=== PATIENT | male | born 1940 | race Caucasian/White ===

== ENCOUNTER → 2016-09-18 | Outpatient (CLI) | payer OTHER | LOC: MMPC 09:00 | PROVIDERS: ATTEND Family Medicine | DX: Z79.01 Long term (current) use of anticoagulants (principal); Z51.81 Encounter for therapeutic drug level monitoring; I48.91 Unspecified atrial fibrillation | CPT/HCPCS: 85610 ==

== ENCOUNTER → 2016-11-13 | Outpatient (CLI) | payer OTHER | LOC: MMPC 09:00 | PROVIDERS: ATTEND Family Medicine | DX: Z79.01 Long term (current) use of anticoagulants (principal); Z51.81 Encounter for therapeutic drug level monitoring; I48.91 Unspecified atrial fibrillation | CPT/HCPCS: 85610 ==

== ENCOUNTER 2017-02-06 09:30 | Inpatient (IN) | payer OTHER ==
[2017-02-06] MEDS ORDERED: NORMAL SALINE 10 ML SYRINGE FLUSH IVP PRN ×4 (09:40→12:17)
--- NOTE | 2017-02-06 09:43 | EKG ---
[address] [address] Measurements Intervals [place] Rate: 54 P: IA: 0 QRS: 97 QRSD: 107 T: -10 QT: 447 QTc: 432 Interpretive Statements ATRIAL FIBRILLATION WITH SLOW VENTRICULAR RESPONSE BORDERLINE RIGHT AXIS DEVIATION [QRS AXIS > 90] NONSPECIFIC ST & T-WAVE ABNORMALITY Compared to ECG 07/24/2014 17:04:48 No significant changes Electronically Signed On 02-06-17 10:16:08 MDT by Terry Carroll [email or web address]
--- NOTE | 2017-02-06 10:11 | PDOC ---
General Adult HPI - General Chief Complaint: Chest Pain Stated Complaint: SHORTNESS OF BREATH, CHEST HEAVINESS Date Seen by Provider: 02/06/17 Time Seen by Provider: 09:30 Source: POSITIVE: Patient Exam Limitations: POSITIVE: No limitations Nurse's Notes Reviewed & Considered: Yes - History of Present Illness Initial Comment: The patient is a 76-year-old male who is sent to the emergency department from the clinic with complaints of shortness of breath and chest heaviness. He apparently has had some increased cough over the past couple of days. This morning when he woke up he felt somewhat bloated and has some heaviness across his chest. He feels like he cannot take a deep breath. He also feels more short of breath especially with activity. He denies any fevers or chills. He has had some increased edema in his legs over the past several weeks. He does have a history of atrial fibrillation and takes Coumadin. His last INR was checked several weeks ago at the cardiology clinic in [place] and he thought this was around 3. He also has a history of diabetes and hypertension. He has not yet taken his blood pressure medications this morning. He normally does not wear oxygen at home however wears BiPAP at night. He does not use any inhalers or breathing treatments at home. He has a distant history of smoking and quit sometime in the 80s. He has a strong family history of coronary artery disease stating that his mom, dad and brother all had heart attacks. Have you received a tetanus shot in the past 10 years?: Unknown - Patient Home Medications Home Medications: Home Medications Lo-Dose Aspirin Ec 1 tab ORAL QD tab 02/28/11 Glucosamine HCl/Chondro Andrade A [Glucosamine Chondroitin Cap] 1 cap PO .DAILY 08/07 Multivitamins W-Minerals/Lut [Centrum Silver Tablet] 1 tab PO DAILY #0 tab 09/20 Cinnamon Bark/Chromium Picolin [Cinnamon Plus Chromium Capsule] 500 mg PO DAILY 12/21/13 Bipap 1 unit INH BEDTIME #1 unit 04/03/16 Amlodipine Besylate 1 tab PO QD #90 tab 12/01/16 Atorvastatin Calcium 20 mg PO DAILY #90 tab 12/01/16 Benazepril HCl 1 tab PO DAILY #90 tab 12/01/16 Carvedilol 1 tab PO BID #180 tab 12/01/16 Furosemide 1 tab PO BID #180 tab 12/01/16 Insulin Glargine SoloStar Inj [Lantus Solostar Inj] 45 unit SUBCUT QD #3 box Levothyroxine Sodium [Synthroid] 150 mcg PO DAILY #90 tab 12/01/16 Metformin HCl 1 tab PO BID #180 tab 12/01/16 Potassium Chloride 1 tab ORAL QD #90 tab 12/01/16 Warfarin Sodium 1 tab PO ASDIR #120 tab 12/01/16 Pen Needle, Diabetic [Unifine Pentips Plus] 1 each QID #120 unit 12/25/16 Insulin Aspart [Novolog Flexpen] 3 - 23 unit SUBCUT AC #3 unit 01/03/17 Sildenafil Citrate [Viagra] 100 mg PO PRN PRN 02/06/17 - Patient Allergies Allergies/Adverse Reactions: Allergies Allergy/AdvReac Type Severity Reaction Status Date / Time rofecoxib [From Vioxx] Allergy Severe swelling Verified 02/06/17 09:58 tongue,eyelids iodine topically Allergy Severe rash Uncoded 02/06/17 09:58 Past Medical History - heen HEENT History: Denies History Cardiovascular History: Hypertension, Arrhythmia, Hyperlipidemia, Other (please comment) Additional Cardiovasular History: A-FIB Respiratory History: Sleep Apnea, Home CPAP Use Gastrointestinal History: Denies History Genitourinary History: Denies History Endocrine History: Type 2 Diabetes (oral), Type 2 Diabetes (insulin), Hyperthyroidism Musculoskeletal History: Other (please comment) Prosthesis or Implant: Yes (hips) Additional Musculoskeletal History: Bilateral total hip replacement Neurological History: Denies History Blood Disorders: Denies History Psychiatric History: Denies History History of Sexually Transmitted Diseases: No Cancer History: Denies History History of MDRO: No History of Other Communicable Diseases: No Alcohol Use: Occasionally Substance Use Type: None Previous Surgical History: Yes Type / Date of Surgery: APPENDECTOMY,B CARPAL TUNNEL, B THR, CERVICAL DISC REPLACEMENT/FUSION Anesthesia Reactions: No Malignant Hyperthermia: No Significant Family History: No pertinent family hx Past Medical History Reviewed: Reviewed - No Changes ROS - Limitations ROS Limitations: No Limitations Constitution: DENIES: Chills, Fever Cardiovascular: REPORTS: Edema, Other (Heaviness in his chest and reports it's difficult to take deep breath). DENIES: Heart Racing, Heart Palpitations Respiratory: REPORTS: Cough Non Productive, Hurts To Breathe, Shortness Of Breath Neurological: REPORTS: Denies Neuro Symptoms Gastrointestinal: REPORTS: Nausea, Other (States that he feels bloated). DENIES : Vomitting, Diarrhea (Reports normal stool yesterday) Musculoskeletal: REPORTS: Lower Extremity Swelling (He states that normally he only has swelling in his right leg, the past couple of weeks he's had swelling in both legs) Genitourinary: REPORTS: Denies Symptoms Eyes: REPORTS: Denies Symptoms ENT: REPORTS: Denies Symptoms Skin: DENIES: Rash General Adult Exam - General Appearance General Appearance: POSITIVE: Alert, Cooperative, No Acute Distress - HEENT HEENT: POSITIVE: Head Inspection Nml, Eyes Inspection Nml, Ears Inspection Nml, Nose Inspection Nml - Neck Neck: POSITIVE: Normal Inspection. NEGATIVE: Lymphadenopathy - Respiratory Respiratory: POSITIVE: No Respiratory Distress, Breath Sounds Normal (Decreased breath sounds bilaterally) - Cardiovascular Cardiovascular: POSITIVE: No Murmur, Irregularly Irreg. Rhythm - Abdomen Abdomen: Soft: (All Quadrants), Normal Bowel Sounds: (All Quadrants), Denies Tenderness: (All Quadrants) Additional Abdominal Details: His abdomen is mildly distended and nontender - Extremities Extremity: Normal ROM: (All Extremities) Additional Extremities Details: Edema in the lower extremities bilaterally - Neurological / Psychological Neurological: POSITIVE: Oriented X3, Motor Normal, Sensation Normal, Other (No focal neurologic deficit) General Adult Progress - Results Reviewed by me Xrays/CTs/US Reviewed by me: Yes Discussed with Radiologist: Yes Radiology Findings: Chest x-ray shows prominent cardiac silhouette along with interstitial edema concerning for congestive heart failure per radiologist. Lab Results Reviewed: Yes Lab Results:: Laboratory Results 02/06/17 Range/Units 10:17 WBC 6.85 (4.8-10.8) 10^3/uL RBC 4.44 L (4.70-6.10) 10^6/uL Hgb 13.6 L (14.0-18.0) g/dL Hct 40.9 L (42.0-52.0) % MCV 92.1 H (80-90) FL MCH 30.6 (27-31) PG MCHC 33.3 (33-37) g/dL RDW Std Deviation 50.3 H (39-50) fL RDW Coeff of Ashley 15.5 H (11.5-14.5) % Plt Count 128 L (140-350) 10*3/uL MPV 11.1 (7.4-12.2) FL Immature Gran % (Auto) 0.1 (0-5) % Neut % (Auto) 62.6 (50-80) % Lymph % (Auto) 21.3 (10-50) % Clare % (Auto) 8.9 (5-15) % Eos % (Auto) 5.3 (0-8) % Baso % (Auto) 1.8 H (0-1) % Immature Gran # (Auto) 0.01 10*3/UL Neut # (Auto) 4.29 10*3/UL Lymph # (Auto) 1.46 10*3/uL Clare # (Auto) 0.61 (0.3-0.8) 10*3/UL Eos # (Auto) 0.36 10*3/UL Baso # (Auto) 0.12 10*3/UL WBC Morphology Comment Normal morphology (NORM) Plt Morphology Comment Normal morphology (NORM) RBC Morph Comment Normal morphology (NORM) PT 26.2 H (9.7-11.4) secs INR 2.50 (0.00-5.90) N/A D-Dimer < 0.19 (0.00-0.59) mg/L Sodium 141 (135-145) meq/L Potassium 3.5 L (3.8-5.2) meq/L Chloride 107 (98-112) meq/L Carbon Dioxide 22 L (23-33) meq/L Anion Gap 12 (5-20) BUN 15 (7-22) mg/dL Creatinine 0.8 (0.70-1.50) mg/dL Estimated GFR (>60 ml/min/1.73m(2)) BUN/Creatinine Ratio 18.75 (6-20) Glucose 199 H (78-110) mg/dL Calculated Osmolality 298.0 H (267-292) mOsm/kg Calcium 8.9 (8.7-10.7) mg/dL Magnesium 1.7 (1.6-2.4) mg/dL Total Bilirubin 1.5 H (0.3-1.2) mg/dL AST 27 (21-57) IU/L ALT 30 (21-72) IU/L Alkaline Phosphatase 76 (38-126) IU/L CK-MB (CK-2) 2.34 (0.00-5.00) NG/ML Troponin I < 0.012 (< 0.040) ng/mL NT-Pro-B Natriuret Pep 545 H (0-450) PG/ML Total Protein 7.1 (6.1-8.0) g/dL Albumin 4.1 (3.5-4.8) g/dL Globulin 3.0 (2.50-4.10) g/dL Albumin/Globulin Ratio 1.30 (1.3-2.0) mg/g Amylase 64 (30-110) U/L Lipase 154 (23-300) IU/L EKG Interpreted/Reviewed By Me:: Yes EKG Interpretation:: POSITIVE: Other (His EKG shows atrial fibrillation with a normal rate, no significant ST segment or T-wave changes, no acute changes when compared to a prior EKG from 2013.) - Patient's Progress MDM / ED Course: The patient was slightly hypoxic on arrival with oxygen saturations 87-89% on room air. He was placed on oxygen per nasal cannula and his oxygen saturations came up into the mid-90s. His initial EKG shows atrial fibrillation which is chronic with a normal rate and no acute ST segment or T-wave changes. His chest x-ray shows borderline cardiomegaly with evidence of congestive heart failure per radiologist. His BNP is also elevated. Troponin is normal, d- dimer is normal and his INR is 2.5. Patient's clinical presentation is consistent with CHF with associated hypoxia. He does have elevated blood pressure is well with an initial blood pressure of 200 systolic. Findings were discussed with the patient and his family. Decision was made to admit the patient for further treatment and evaluation. I did discuss the patient with Dr. Ramachandran and he recommended administration of clonidine 0.1 mg by mouth as well as lisinopril 40 mg by mouth. The patient had no IV access in the emergency department after multiple attempts. I did discuss the patient with the radiologist who has set up a guided PICC line. The patient is in agreement with current plan. - Consult Counseled: POSITIVE: Patient, Family, RE: Lab Results, RE: Radiology Results, RE : DX Patient Care Time - Estimated PCT Patient Care Time (In Minutes): 45 Vital Signs - Recent Vital Signs Vital Signs: Vital Signs (Last 8 hours) Temp Pulse Pulse Pulse Resp BP BP 02/06/17 16:53 97.4 F 61 19 169/73 02/06/17 15:00 59 L 02/06/17 12:24 97.5 F 54 L 22 148/78 02/06/17 12:20 54 L 02/06/17 11:59 97.2 F 52 L 18 155/68 Pulse Ox 02/06/17 16:53 90 02/06/17 15:00 02/06/17 12:24 95 02/06/17 12:20 02/06/17 11:59 96 - VS Reviewed Vital Signs Reviewed: Yes Discharge Clinical Impression: Hypertension, Atrial fibrillation, Congestive heart failure due to high blood pressure Discharge Disposition: Admit to Inpatient Condition: Stable Date Decision to Admit to Inpatient: 02/06/17 Time Decision to Admit to Inpatient: 11:15
[2017-02-06 10:20] LABS: BASOPHILS # (AUTO) 0.12 10*3/UL; BASOPHILS % (AUTO) 1.8 % (0-1); EOSINOPHILS # (AUTO) 0.36 10*3/UL; EOSINOPHILS % (AUTO) 5.3 % (0-8); HEMATOCRIT 40.9 % (42.0-52.0); HEMOGLOBIN 13.6 g/dL (14.0-18.0); LYMPHOCYTES # (AUTO) 1.46 10*3/uL; MEAN CORPUSCULAR HEMOGLOBIN 30.6 PG (27-31); MEAN CORPUSCULAR HGB CONC 33.3 g/dL (33-37); MEAN CORPUSCULAR VOLUME 92.1 FL (80-90); MEAN PLATELET VOLUME 11.1 FL (7.4-12.2); MONOCYTES # (AUTO) 0.61 10*3/UL (0.3-0.8); MONOCYTES % (AUTO) 8.9 % (5-15); NEUTROPHILS # (AUTO) 4.29 10*3/UL; NEUTROPHILS % (AUTO) 62.6 % (50-80); RED BLOOD COUNT 4.44 10^6/uL (4.70-6.10)
[2017-02-06 10:21] LABS: PLATELET MORPHOLOGY COMMENT NORMAL MORPHOLOGY (NORM); RBC MORPHOLOGY COMMENT NORMAL MORPHOLOGY (NORM); WBC MORPHOLOGY COMMENT NORMAL MORPHOLOGY (NORM)
[2017-02-06 10:27] LABS: BUN/CREATININE RATIO 18.75 (6-20); CALCIUM 8.9 mg/dL (8.7-10.7); MAGNESIUM 1.7 mg/dL (1.6-2.4); SERUM ALBUMIN 4.1 g/dL (3.5-4.8)
[2017-02-06 10:50] LABS: CREATINE KINASE MB 2.34 NG/ML (0.00-5.00)
[2017-02-06 10:52] LABS: TROPONIN I < 0.012 ng/mL (< 0.040)
--- NOTE | 2017-02-06 11:01 | DI ---
XR CXR 1VW,02/06/2017 9:40 AM: Clinical History: Chest pain Previous Exam: November 01, 2015 Findings: A single frontal AP view of the chest is obtained, and demonstrates increased interstitial markings. There is prominence of the cardiomediastinal silhouette, but this is hard to assess on an AP view. The bony thorax is unremarkable. There is no blunting of the costophrenic angles. Impression: Increased interstitial markings and prominent cardiomediastinal silhouette worrisome for congestive h eart failure. Correlate clinically.
[2017-02-06] MEDS ORDERED: CloNIDine Tab 0.1 MG TABLET PO ONE (11:18)
[2017-02-06] MEDS ORDERED: LISINOPRIL 10 MG TABLET PO ONE (11:18)
[2017-02-06] MEDS ORDERED: LIDOCAINE W/ SODIUM BICARB 0.5 ML SYR SUBD PRN ×2 (11:21→12:17)
--- NOTE | 2017-02-06 11:29 | PDOC ---
History and Physical - History of Present Illness History of Present Illness: This very nice 76-year-old gentleman with past medical history significant for chronic atrial fibrillation, hypertension, and diabetes. Comes into the ER from the outpatient clinic complaining of shortness of breath and chest heaviness. Also feels more short of breath with activity lately and also the edema in his lower extremities are also noted and worsened also was found to have a blood blood pressure 200/100 also has a history of sleep apnea and wears BiPAP at night strong family history of coronary artery disease and smoking in the past. Discussed with ER physician he will be given 0.1 on clonidine and lisinopril 401 also will get an a PICC line since he is a hard stick by the radiology department. Both his lower extremities are pretty swollen especially his right leg no chest pain at present time family members in the room Past Medical History Tobacco Use: Former Smoker Substance Use Type: None Medication / Allergies Home Medications: Home Medications Medication Instructions Recorded Confirmed Type Lo-Dose Aspirin Ec 1 tab ORAL QD tab 02/28/11 02/06/17 History Glucosamine HCl/Chondro Andrade A 1 cap PO .DAILY 08/07/11 02/06/17 History [Glucosamine Chondroitin Cap] Multivitamins W-Minerals/Lut 1 tab PO DAILY #0 tab 09/20/12 02/06/17 Clinic [Centrum Silver Tablet] Cinnamon Bark/Chromium Picolin 500 mg PO DAILY 12/21/13 02/06/17 History [Cinnamon Plus Chromium Capsule] Bipap 1 unit INH BEDTIME #1 unit 04/03/16 02/06/17 History Amlodipine Besylate 1 tab PO QD #90 tab 12/01/16 02/06/17 Clinic Atorvastatin Calcium 20 mg PO DAILY #90 tab 12/01/16 02/06/17 Clinic Benazepril HCl 1 tab PO DAILY #90 tab 12/01/16 02/06/17 Clinic Carvedilol 1 tab PO BID #180 tab 12/01/16 02/06/17 Clinic Furosemide 1 tab PO BID #180 tab 12/01/16 02/06/17 Clinic Insulin Glargine SoloStar Inj 45 unit SUBCUT QD #3 box 12/01/16 02/06/17 Clinic [Lantus Solostar Inj] Levothyroxine Sodium [Synthroid] 150 mcg PO DAILY #90 tab 12/01/16 02/06/17 Clinic Metformin HCl 1 tab PO BID #180 tab 12/01/16 02/06/17 Clinic Potassium Chloride 1 tab ORAL QD #90 tab 12/01/16 02/06/17 Clinic Warfarin Sodium 1 tab PO ASDIR #120 tab 12/01/16 02/06/17 Clinic Pen Needle, Diabetic [Unifine 1 each MC QID #120 unit 12/25/16 02/06/17 Clinic Pentips Plus] Insulin Aspart [Novolog Flexpen] 3 - 23 unit SUBCUT AC #3 unit 01/03/17 [facility] Sildenafil Citrate [Viagra] 100 mg PO PRN PRN 02/06/17 02/06/17 History Allergies/Adverse Reactions: Allergies Allergy/AdvReac Type Severity Reaction Status Date / Time rofecoxib [From Vioxx] Allergy Severe swelling Verified 02/06/17 09:58 tongue,eyelids iodine topically Allergy Severe rash Uncoded 02/06/17 09:58 Exam - Vitals Vital Signs: Vital Signs Temperature 96.3 F Temperature Source Temporal Artery Scan Pulse Rate [Telemetry] 54 Pulse Rate 54 Respiratory Rate 19 Blood Pressure [Right Arm] 201/97 Pulse Ox 87 Oxygen Delivery Method Room Air Height 5 ft 11 in Weight 122.47 kg - General General Appearance: POSITIVE: No Acute Distress, Cooperative - Head Head Exam: POSITIVE: Normal Inspection, Normocephalic, Atraumatic - Respiratory Respiratory Exam: POSITIVE: Clear to Auscultation - Bilaterally, Breathing Non Labored, Decreased Breath Sounds, Crackles - Cardiovascular Cardiovascular Exam: POSITIVE: Irregular Rhythm Additional Cardiovascular Details: Atrial fibrillation - GI/Abdominal GI/Abdominal Exam: POSITIVE: Normal Bowel Sounds, Non Distended, Soft - Extremities Extremities Exam: POSITIVE: +3 Edema - Neurological Neurological Exam: POSITIVE: Alert, Oriented x 3, CN II-XII Intact, No Facial Droop, Speech Intact / Clear - Psychiatric Psychiatric Exam: POSITIVE: Normal Affect, Normal Mood Results - Labs CBC and BMP: 02/06/17 10:17 02/06/17 10:17 Labs - Last 24 Hours: Laboratory Results 02/06/17 Range/Units 10:17 WBC 6.85 (4.8-10.8) 10^3/uL RBC 4.44 L (4.70-6.10) 10^6/uL Hgb 13.6 L (14.0-18.0) g/dL Hct 40.9 L (42.0-52.0) % MCV 92.1 H (80-90) FL MCH 30.6 (27-31) PG MCHC 33.3 (33-37) g/dL RDW Std Deviation 50.3 H (39-50) fL RDW Coeff of Ashley 15.5 H (11.5-14.5) % Plt Count 128 L (140-350) 10*3/uL MPV 11.1 (7.4-12.2) FL Immature Gran % (Auto) 0.1 (0-5) % Neut % (Auto) 62.6 (50-80) % Lymph % (Auto) 21.3 (10-50) % Cannon % (Auto) 8.9 (5-15) % Eos % (Auto) 5.3 (0-8) % Baso % (Auto) 1.8 H (0-1) % Immature Gran # (Auto) 0.01 10*3/UL Neut # (Auto) 4.29 10*3/UL Lymph # (Auto) 1.46 10*3/uL Cannon # (Auto) 0.61 (0.3-0.8) 10*3/UL Eos # (Auto) 0.36 10*3/UL Baso # (Auto) 0.12 10*3/UL WBC Morphology Comment Normal morphology (NORM) Plt Morphology Comment Normal morphology (NORM) RBC Morph Comment Normal morphology (NORM) PT 26.2 H (9.7-11.4) secs INR 2.50 (0.00-5.90) N/A D-Dimer < 0.19 (0.00-0.59) mg/L Sodium 141 (135-145) meq/L Potassium 3.5 L (3.8-5.2) meq/L Chloride 107 (98-112) meq/L Carbon Dioxide 22 L (23-33) meq/L Anion Gap 12 (5-20) BUN 15 (7-22) mg/dL Creatinine 0.8 (0.70-1.50) mg/dL Estimated GFR (>60 ml/min/1.73m(2)) BUN/Creatinine Ratio 18.75 (6-20) Glucose 199 H (78-110) mg/dL Calculated Osmolality 298.0 H (267-292) mOsm/kg Calcium 8.9 (8.7-10.7) mg/dL Magnesium 1.7 (1.6-2.4) mg/dL Total Bilirubin 1.5 H (0.3-1.2) mg/dL AST 27 (21-57) IU/L ALT 30 (21-72) IU/L Alkaline Phosphatase 76 (38-126) IU/L CK-MB (CK-2) 2.34 (0.00-5.00) NG/ML Troponin I < 0.012 (< 0.040) ng/mL NT-Pro-B Natriuret Pep 545 H (0-450) PG/ML Total Protein 7.1 (6.1-8.0) g/dL Albumin 4.1 (3.5-4.8) g/dL Globulin 3.0 (2.50-4.10) g/dL Albumin/Globulin Ratio 1.30 (1.3-2.0) mg/g Amylase 64 (30-110) U/L Lipase 154 (23-300) IU/L Assessment and Plan - Patient Problems (1) Congestive heart failure due to high blood pressure Current Visit: Yes Status: Acute Comment: Obtain a PICC line and start IV Lasix order 2-D echo most likely secondary to high blood pressure we'll also rule him out with serial troponins (2) Hypertensive urgency Current Visit: Yes Status: Acute Comment: 0.1 on clonidine and lisinopril 40 IV Lasix as well patient is already on R beta sanford and calcium channel sanford he has not taken his meds today yet (3) Diabetes 1.5, managed as type 2 Current Visit: No Status: Acute Comment: Into the same medication check hemoglobin A1c (4) Edema Current Visit: No Status: Acute Comment: IV Lasix and also I will order ultrasound of his lower extremities rule out DVT (5) Hypertension Current Visit: No Status: Acute Comment: See above (6) Sleep apnea Current Visit: No Status: Acute Comment: Continue CPAP (7) Atrial fibrillation Current Visit: No Status: Chronic Comment: Continue beta sanford and Coumadin
[2017-02-06] MEDS ORDERED: FUROSEMIDE 10 MG/1 ML - 2 ML VIAL IV SCH (11:30)
[2017-02-06] MEDS ORDERED: NORMAL SALINE 10 ML SYRINGE FLUSH IV PRN (11:35)
[2017-02-06] MEDS ORDERED: Lidocaine 1% 10 MG/ML - 20 ML VIAL SUBCUT PRN (11:35)
[2017-02-06] MEDS ORDERED: LIDOCAINE 2% 20 MG/ML - 20 ML VIAL SUBCUT PRN (11:35)
[2017-02-06] MEDS ORDERED: Sodium Chloride 0.9% 1,000 ML ONE (12:42)
[2017-02-06] MEDS: BENAZEPRIL 10 MG TABLET PO SCH (14:38)
--- NOTE | 2017-02-06 15:29 | DI ---
US UP/LOW EXTREMITY VEINS B/L,02/06/2017 12:20 PM: Clinical History: Bilateral leg swelling. Previous Exam: None at this facility. Findings: Multiple grayscale and color Doppler sonographic images are obtained of the deep veins of both large tremors, and demonstrate complete coaptation upon graded compression throughout the deep veins. There is a large cystic area within the left medial popliteal fossa. There is normal respiratory variation and augmentation. There is no evidence of echogenic thrombus. Impression: 1. 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 This is most consistent with a Rowe's cyst. 2. No evidence of deep venous thrombosis.
--- NOTE | 2017-02-06 15:31 | DI ---
INSERTION OF PICC LINE WITH FLUOROSCOPIC GUIDANCE, 02/06/2017 11:35 AM: Clinical History: Need for IV access. Technique: After informed, signed consent was obtained, the risks were explained to the patient of pe rforming the procedure with an INR of 2.5. The patient understood the risks and benefits of treating the congestive heart failure with intravenous medications. The left arm was prepped with Betadine and alcohol. Venipuncture was achieved as described with the u ltrasound report and the introducer sheath was positioned in place using the Seldinger technique with local anesthesia (1% Lidocaine without epinephrine). A 4 Khmer double lumen Bard Power Picc Solo PICC catheter was inserted and the tip was positioned w ith fluoroscopic guidance. Fluoroscopic documentation was with a spot film. The standard dry sterile dressing kit was used to secure the catheter. Final catheter documentation was with a spot film of th e chest and this film confirmed that the catheter tip was in the distal SVC. The patient tolerated th e procedure well and was discharged in stable condition. Standard instructions regarding wound care p recautions and dressing changes were discussed with the patient prior to discharge. Java Lead Architect: Dr. Joaquín Ernst M.D. Ambulatory Care: None. Complications: None. Reading: PICC line placement as above.
--- NOTE | 2017-02-06 15:34 | DI ---
US VASCULAR ACCESS-US GUIDANCE,02/06/2017 11:36 AM: Clinical History: Need for IV access. Technique: After informed, signed consent was obtained, the risks were explained to the patient of pe rforming the procedure with an INR of 2.5. The patient understood the risks and benefits of treating the congestive heart failure with intravenous medications. The left arm was prepped with Betadine and alcohol. Venipuncture was achieved using sonographic boom nce. And the introducer sheath was positioned in place using the Seldinger technique with local anest hesia (1% Lidocaine without epinephrine). A 4 Iranian double lumen Bard Power Picc Solo PICC catheter was inserted and the tip was positioned w ith fluoroscopic guidance. Fluoroscopic documentation was with a spot film. The standard dry sterile dressing kit was used to secure the catheter. Final catheter documentation was with a spot film of th e chest and this film confirmed that the catheter tip was in the distal SVC. The patient tolerated th e procedure well and was discharged in stable condition. Standard instructions regarding wound care p recautions and dressing changes were discussed with the patient prior to discharge. Metal Stamper: Dr. Joaquín Ernst M.D. Alteration Tailor Apprentice: None. Complications: None. Findings: Multiple images are obtained of the chest demonstrating a wire within the left axillary vei n, subclavian vein, innominate vein and superior vena cava. There is also a catheter noted which exte nds to the superior vena cava. Sonographic images are obtained demonstrating a wire within the left brachial vein. Reading: PICC line placement as above.
[2017-02-06] MEDS: Insulin Lispro Flexpen 300 UNIT/3 ML INSULN.PEN SUBCUT SCH (17:15)
[2017-02-06] MEDS ORDERED: FUROSEMIDE 10 MG/1 ML - 4 ML IV SCH (19:00)
[2017-02-06] MEDS: CARVEDILOL 6.25 MG TABLET PO SCH (20:42)
[2017-02-06] MEDS: Warfarin 5 MG TAB PO SCH (20:42)
[2017-02-06] MEDS: Insulin Glargine SoloStar Inj 100 UNIT/ML INSULN.PEN SUBCUT SCH (20:42)
[2017-02-06] MEDS: metFORMIN 850 MG TABLET PO SCH (20:42)
[2017-02-06] MEDS ORDERED: [UNRECOGNIZED DRUG - OTHER] INH SCH (21:00)
[2017-02-07] MEDS: Levothyroxine Sodium 100 MCG, Levothyroxine Sodium 50 MCG PO SCH ×4 (04:23→06:41)
[2017-02-07] MEDS ORDERED: NITROGLYCERIN 0.4 MG SL TAB (BOTTLE OF 3) SL ONE ×2 (06:18→06:36)
[2017-02-07 06:26] LABS: BASOPHILS % (AUTO) 0.8 % (0-1); EOSINOPHILS # (AUTO) 0.36 10*3/UL; EOSINOPHILS % (AUTO) 2.9 % (0-8); HEMATOCRIT 42.6 % (42.0-52.0); HEMOGLOBIN 14.2 g/dL (14.0-18.0); LYMPHOCYTES # (AUTO) 1.71 10*3/uL; MEAN CORPUSCULAR HEMOGLOBIN 30.3 PG (27-31); MEAN CORPUSCULAR HGB CONC 33.3 g/dL (33-37); MEAN CORPUSCULAR VOLUME 90.8 FL (80-90); MEAN PLATELET VOLUME 11.1 FL (7.4-12.2); MONOCYTES # (AUTO) 1.17 10*3/UL (0.3-0.8); MONOCYTES % (AUTO) 9.5 % (5-15); NEUTROPHILS # (AUTO) 8.99 10*3/UL; NEUTROPHILS % (AUTO) 72.8 % (50-80); RED BLOOD COUNT 4.69 10^6/uL (4.70-6.10)
[2017-02-07 06:29] LABS: PLATELET MORPHOLOGY COMMENT NORMAL MORPHOLOGY (NORM); RBC MORPHOLOGY COMMENT NORMAL MORPHOLOGY (NORM); WBC MORPHOLOGY COMMENT NORMAL MORPHOLOGY (NORM)
[2017-02-07 06:36] LABS: BUN/CREATININE RATIO 14.44 (6-20); CALCIUM 8.8 mg/dL (8.7-10.7); MAGNESIUM 1.7 mg/dL (1.6-2.4); PHOSPHORUS 3.9 mg/dl (2.4-4.3); SERUM ALBUMIN 4.1 g/dL (3.5-4.8)
--- NOTE | 2017-02-07 06:37 | EKG ---
[address] [place] [address] Measurements Intervals [place] Rate: 67 P: NE: 0 QRS: 86 QRSD: 107 T: -16 QT: 448 QTc: 464 Interpretive Statements ATRIAL FIBRILLATION NONSPECIFIC ST & T-WAVE ABNORMALITY borderline PROLONGED QT INTERVAL Compared to ECG 02/06/2017 09:40:52 Prolonged QT interval now present T-wave abnormality still present Electronically Signed On 02-07-17 13:05:38 MDT by Curt Paige MD [id number]
[2017-02-07] MEDS ORDERED: FUROSEMIDE 10 MG/1 ML - 2 ML VIAL IVP SCH (07:00)
[2017-02-07] MEDS: Insulin Lispro Flexpen 300 UNIT/3 ML INSULN.PEN SUBCUT SCH ×3 (07:51→16:34)
[2017-02-07] MEDS ORDERED: POTASSIUM CHLORIDE 20 MEQ TAB PO SCH ×2 (09:00→21:00)
--- NOTE | 2017-02-07 09:18 | PDOC(PROG) ---
Interval History: Patient is doing well lost 20 pounds from diuresing him. He did have some chest pain this morning which was relieved by nitroglycerin. No EKG changes and negative troponin now is chest pain-free Objective : Data - Labs CBC and BMP: 02/07/17 06:10 02/07/17 06:10 Labs - Last 24 Hours: Laboratory Results 02/06/17 02/07/17 02/07/17 Range/Units 19:12 01:15 06:10 WBC 12.36 H (4.8-10.8) 10^3/uL RBC 4.69 L (4.70-6.10) 10^6/uL Hgb 14.2 (14.0-18.0) g/dL Hct 42.6 (42.0-52.0) % MCV 90.8 H (80-90) FL MCH 30.3 (27-31) PG MCHC 33.3 (33-37) g/dL RDW Std Deviation 50.1 H (39-50) fL RDW Coeff of Ashley 15.3 H (11.5-14.5) % Plt Count 175 (140-350) 10*3/uL MPV 11.1 (7.4-12.2) FL Immature Gran % (Auto) 0.2 (0-5) % Neut % (Auto) 72.8 (50-80) % Lymph % (Auto) 13.8 (10-50) % [place] % (Auto) 9.5 (5-15) % Eos % (Auto) 2.9 (0-8) % Baso % (Auto) 0.8 (0-1) % Immature Gran # (Auto) 0.03 10*3/UL Neut # (Auto) 8.99 10*3/UL Lymph # (Auto) 1.71 10*3/uL [place] # (Auto) 1.17 H (0.3-0.8) 10*3/UL Eos # (Auto) 0.36 10*3/UL Baso # (Auto) 0.10 10*3/UL WBC Morphology Comment Normal morphology (NORM) Plt Morphology Comment Normal morphology (NORM) RBC Morph Comment Normal morphology (NORM) Sodium 141 (135-145) meq/L Potassium 3.1 L (3.8-5.2) meq/L Chloride 99 (98-112) meq/L Carbon Dioxide 29 (23-33) meq/L Anion Gap 13 (5-20) BUN 13 (7-22) mg/dL Creatinine 0.9 (0.70-1.50) mg/dL Estimated GFR (>60 ml/min/1.73m(2)) BUN/Creatinine Ratio 14.44 (6-20) Glucose 113 H (78-110) mg/dL Calculated Osmolality 292.0 (267-292) mOsm/kg Calcium 8.8 (8.7-10.7) mg/dL Phosphorus 3.9 (2.4-4.3) mg/dl Magnesium 1.7 (1.6-2.4) mg/dL Total Bilirubin 2.7 H (0.3-1.2) mg/dL AST 29 (21-57) IU/L ALT 32 (21-72) IU/L Alkaline Phosphatase 69 (38-126) IU/L Troponin I < 0.012 0.013 0.013 (< 0.040) ng/mL Total Protein 7.3 (6.1-8.0) g/dL Albumin 4.1 (3.5-4.8) g/dL Globulin 3.2 (2.50-4.10) g/dL Albumin/Globulin Ratio 1.20 L (1.3-2.0) mg/g Objective : Exam - Respiratory Respiratory Exam: Clear to Auscultation - Bilaterally, Breathing Non Labored, Normal To Percussion - Cardiovascular Cardiovascular Exam: No Murmur, No Clicks, Irregular Rhythm - GI/Abdominal GI/Abdominal Exam: Non Tender, Non Distended, Soft - Extremities Extremities Exam: No Clubbing Present, No Edema Present, No Cyanosis Present - Neurological Neurological Exam: Alert, Oriented x 3 Assessment and Plan - Patient Problems (1) Congestive heart failure due to high blood pressure Current Visit: Yes Status: Acute Comment: Continue Lasix drip great diuresis hands look less swelling as well as lower extremities no DVT in the lower extremities. (2) Hypertensive urgency Current Visit: Yes Status: Acute Comment: Better control at present time (3) Diabetes 1.5, managed as type 2 Current Visit: No Status: Acute Comment: Continue usual meds (4) Edema Current Visit: No Status: Acute Comment: Improving (5) Hypertension Current Visit: Yes Status: Acute Comment: Improved and controlled (6) Sleep apnea Current Visit: No Status: Acute Comment: CPAP (7) Atrial fibrillation Current Visit: Yes Status: Chronic Comment: Continue anticoagulation and usual meds rate controlled
[2017-02-07] MEDS: CARVEDILOL 6.25 MG TABLET PO SCH ×2 (09:30→20:43)
[2017-02-07] MEDS: metFORMIN 850 MG TABLET PO SCH ×2 (09:30→20:59)
[2017-02-07] MEDS: BENAZEPRIL 10 MG TABLET PO SCH (09:30)
[2017-02-07] MEDS: ASPIRIN EC 81 MG TABLET PO SCH (09:31)
[2017-02-07] MEDS: POTASSIUM CHLORIDE 20 MEQ TAB PO SCH ×2 (11:22→20:43)
--- NOTE | 2017-02-07 19:59 | DI ---
CT CTA CHEST NONCORONARY W/WO,02/07/2017 5:31 PM: Clinical History: Right atrial and ventricular enlargement. Previous Exam: None at this facility. Findings: Multiple helically acquired CT images are obtained through the chest following a CT chest angiogram p rotocol, and demonstrate small bilateral pleural effusions larger on the right than the left. The pulmonary arteries are normal without filling defect or truncation. The aorta is also unremarkabl e with a few peripheral vascular calcifications. Skeletal structures are unremarkable except for mild degenerative changes of the spine. Impression: No evidence of pulmonary embolism.
[2017-02-07] MEDS: ATORVASTATIN 20 MG TABLET PO SCH (20:42)
[2017-02-07] MEDS: Insulin Glargine SoloStar Inj 100 UNIT/ML INSULN.PEN SUBCUT SCH (20:46)
[2017-02-07] MEDS: Warfarin 5 MG TAB PO SCH (20:47)
[2017-02-08] MEDS: NORMAL SALINE 10 ML SYRINGE FLUSH IVP PRN (04:25)
[2017-02-08] MEDS: HEPARIN 500 UNIT/5 ML SYRINGE FOR CENTRAL LINE IVP PRN (04:25)
[2017-02-08 04:34] LABS: BASOPHILS # (AUTO) 0.12 10*3/UL; BASOPHILS % (AUTO) 1.3 % (0-1); EOSINOPHILS # (AUTO) 0.37 10*3/UL; EOSINOPHILS % (AUTO) 3.9 % (0-8); HEMATOCRIT 41.7 % (42.0-52.0); HEMOGLOBIN 13.8 g/dL (14.0-18.0); LYMPHOCYTES # (AUTO) 2.12 10*3/uL; MEAN CORPUSCULAR HEMOGLOBIN 30.1 PG (27-31); MEAN CORPUSCULAR HGB CONC 33.1 g/dL (33-37); MEAN PLATELET VOLUME 10.3 FL (7.4-12.2); MONOCYTES # (AUTO) 1.03 10*3/UL (0.3-0.8); MONOCYTES % (AUTO) 10.9 % (5-15); NEUTROPHILS # (AUTO) 5.75 10*3/UL; NEUTROPHILS % (AUTO) 61.2 % (50-80); RED BLOOD COUNT 4.58 10^6/uL (4.70-6.10)
[2017-02-08 04:44] LABS: BUN/CREATININE RATIO 15.55 (6-20); CALCIUM 8.7 mg/dL (8.7-10.7); PLATELET MORPHOLOGY COMMENT NORMAL MORPHOLOGY (NORM); RBC MORPHOLOGY COMMENT NORMAL MORPHOLOGY (NORM); SERUM ALBUMIN 3.8 g/dL (3.5-4.8); WBC MORPHOLOGY COMMENT NORMAL MORPHOLOGY (NORM)
[2017-02-08] MEDS: Levothyroxine Sodium 100 MCG, Levothyroxine Sodium 50 MCG PO SCH ×2 (05:08)
[2017-02-08] MEDS: FUROSEMIDE 10 MG/1 ML - 2 ML VIAL IVP SCH ×2 (07:20→12:58)
[2017-02-08] MEDS: Insulin Lispro Flexpen 300 UNIT/3 ML INSULN.PEN SUBCUT SCH ×3 (07:23→17:09)
[2017-02-08] MEDS: BENAZEPRIL 10 MG TABLET PO SCH (08:45)
[2017-02-08] MEDS: POTASSIUM CHLORIDE 20 MEQ TAB PO SCH ×2 (08:46→20:57)
[2017-02-08] MEDS: ASPIRIN EC 81 MG TABLET PO SCH (08:46)
[2017-02-08] MEDS: CARVEDILOL 6.25 MG TABLET PO SCH ×2 (08:46→20:57)
--- NOTE | 2017-02-08 11:40 | PDOC(PROG) ---
Interval History: Doing much better today had long discussion with family members explaining disease state: The hr specialist for them they now believe they have understanding of what is going on. Patient actually revealed that he was not taking his Lasix because of his driving and now was eating very salty foods as well for last couple weeks Objective : Data - Labs CBC and BMP: 02/08/17 04:22 02/08/17 04:22 Labs - Last 24 Hours: Laboratory Results 02/08/17 Range/Units 04:22 WBC 9.41 (4.8-10.8) 10^3/uL RBC 4.58 L (4.70-6.10) 10^6/uL Hgb 13.8 L (14.0-18.0) g/dL Hct 41.7 L (42.0-52.0) % MCV 91.0 H (80-90) FL MCH 30.1 (27-31) PG MCHC 33.1 (33-37) g/dL RDW Std Deviation 50.0 (39-50) fL RDW Coeff of Ashley 15.3 H (11.5-14.5) % Plt Count 129 L (140-350) 10*3/uL MPV 10.3 (7.4-12.2) FL Immature Gran % (Auto) 0.2 (0-5) % Neut % (Auto) 61.2 (50-80) % Lymph % (Auto) 22.5 (10-50) % [place] % (Auto) 10.9 (5-15) % Eos % (Auto) 3.9 (0-8) % Baso % (Auto) 1.3 H (0-1) % Immature Gran # (Auto) 0.02 10*3/UL Neut # (Auto) 5.75 10*3/UL Lymph # (Auto) 2.12 10*3/uL [place] # (Auto) 1.03 H (0.3-0.8) 10*3/UL Eos # (Auto) 0.37 10*3/UL Baso # (Auto) 0.12 10*3/UL WBC Morphology Comment Normal morphology (NORM) Plt Morphology Comment Normal morphology (NORM) RBC Morph Comment Normal morphology (NORM) Sodium 139 (135-145) meq/L Potassium 2.9 L (3.8-5.2) meq/L Chloride 97 L (98-112) meq/L Carbon Dioxide 31 (23-33) meq/L Anion Gap 11 (5-20) BUN 14 (7-22) mg/dL Creatinine 0.9 (0.70-1.50) mg/dL Estimated GFR (>60 ml/min/1.73m(2)) BUN/Creatinine Ratio 15.55 (6-20) Glucose 153 H (78-110) mg/dL Calculated Osmolality 291.0 (267-292) mOsm/kg Calcium 8.7 (8.7-10.7) mg/dL Magnesium 2.0 (1.6-2.4) mg/dL Total Bilirubin 2.7 H (0.3-1.2) mg/dL AST 24 (21-57) IU/L ALT 35 (21-72) IU/L Alkaline Phosphatase 65 (38-126) IU/L Total Protein 6.8 (6.1-8.0) g/dL Albumin 3.8 (3.5-4.8) g/dL Globulin 3.0 (2.50-4.10) g/dL Albumin/Globulin Ratio 1.20 L (1.3-2.0) mg/g Objective : Exam - General General Appearance: Cooperative - Respiratory Respiratory Exam: Clear to Auscultation - Bilaterally, Breathing Non Labored, Decreased Breath Sounds - Cardiovascular Cardiovascular Exam: Irregular Rhythm - GI/Abdominal GI/Abdominal Exam: Non Tender, Non Distended, Soft - Additional Exam Details: Him redness in the in between the buttock cheeks - Extremities Additional Extremities Exam Details: Denies weight improved to +1 Assessment and Plan - Patient Problems (1) Congestive heart failure due to high blood pressure Current Visit: Yes Status: Acute Comment: Patient has a great diuresis we'll start Lasix drip today start IV Lasix twice a day replace potassium patient has not been compliant with medication I did explain to him the necessity to keep on taking his Lasix twice a day most likely does have right heart failure with cor pulmonale I did discuss the case with Dr. Perez cardiology when he is hemodynamically stable he can be discharged home and is storage consultant him for an appointment all family members understand I went over this plan in detail with both daughter and (2) Hypertensive urgency Current Visit: Yes Status: Acute Comment: Improved (3) Diabetes 1.5, managed as type 2 Current Visit: No Status: Acute (4) Edema Current Visit: No Status: Acute Comment: Improving (5) Hypertension Current Visit: Yes Status: Acute Comment: Controlled (6) Sleep apnea Current Visit: No Status: Acute Comment: CPAP (7) Atrial fibrillation Current Visit: Yes Status: Chronic Comment: Continue current meds
[2017-02-08] MEDS: Warfarin 5 MG TAB PO SCH (20:57)
[2017-02-08] MEDS: ATORVASTATIN 20 MG TABLET PO SCH (20:57)
[2017-02-08] MEDS: Insulin Glargine SoloStar Inj 100 UNIT/ML INSULN.PEN SUBCUT SCH (20:57)
[2017-02-09] MEDS: Levothyroxine Sodium 100 MCG, Levothyroxine Sodium 50 MCG PO SCH ×2 (05:06)
[2017-02-09] MEDS: FUROSEMIDE 10 MG/1 ML - 2 ML VIAL IVP SCH (07:06)
[2017-02-09] MEDS: Insulin Lispro Flexpen 300 UNIT/3 ML INSULN.PEN SUBCUT SCH ×3 (07:06→16:31)
[2017-02-09] MEDS: BENAZEPRIL 10 MG TABLET PO SCH (08:34)
[2017-02-09] MEDS: POTASSIUM CHLORIDE 20 MEQ TAB PO SCH ×2 (08:34→20:20)
[2017-02-09] MEDS: CARVEDILOL 6.25 MG TABLET PO SCH (08:35)
[2017-02-09] MEDS: ASPIRIN EC 81 MG TABLET PO SCH (08:35)
[2017-02-09 10:43] LABS: BUN/CREATININE RATIO 25.55 (6-20)
--- NOTE | 2017-02-09 11:44 | PDOC(PROG) ---
Interval History: Doing well feels much better with all his fluid the off. Has no complaints no chest pain no nausea no vomiting Objective : Data - Labs CBC and BMP: 02/08/17 04:22 02/09/17 10:00 Labs - Last 24 Hours: Laboratory Results 02/09/17 Range/Units 10:00 Sodium 137 (135-145) meq/L Potassium 4.6 D (3.8-5.2) meq/L Chloride 102 (98-112) meq/L Carbon Dioxide 23 (23-33) meq/L Anion Gap 12 (5-20) BUN 23 H (7-22) mg/dL Creatinine 0.9 (0.70-1.50) mg/dL Estimated GFR (>60 ml/min/1.73m(2)) BUN/Creatinine Ratio 25.55 H (6-20) Glucose 266 H (78-110) mg/dL Calculated Osmolality 296.0 H (267-292) mOsm/kg Calcium 9.0 (8.7-10.7) mg/dL Total Bilirubin 1.7 H (0.3-1.2) mg/dL AST 36 (21-57) IU/L ALT 37 (21-72) IU/L Alkaline Phosphatase 73 (38-126) IU/L Total Protein 7.0 (6.1-8.0) g/dL Albumin 4.0 (3.5-4.8) g/dL Globulin 3.0 (2.50-4.10) g/dL Albumin/Globulin Ratio 1.30 (1.3-2.0) mg/g Objective : Exam - General General Appearance: Cooperative - Respiratory Respiratory Exam: Clear to Auscultation - Bilaterally, Decreased Breath Sounds - Cardiovascular Cardiovascular Exam: Irregular Rhythm - GI/Abdominal GI/Abdominal Exam: Normal Bowel Sounds, Non Tender, Non Distended - Extremities Additional Extremities Exam Details: Trace edema much improved - Neurological Neurological Exam: Alert, Oriented x 3, CN II-XII Intact, No Facial Droop, Speech Intact / Clear Assessment and Plan - Patient Problems (1) Congestive heart failure due to high blood pressure Current Visit: Yes Status: Acute Comment: Patient was diuresed over 10 L he was started on IV Lasix drip and transition to IV Lasix now today we'll be putting him on by mouth 40 twice a day. I did discuss the case with Dr. Brice in regards to his echo and Dr. Perez cardiology they both feel that if he is hemodynamically stable he can follow-up as an outpatient with them the in the [place] in [place] Dr. Perez said that he would have his office call him for an appointment. I believe this is all right heart failure or cor pulmonale from long-standing hypertension and pulmonary hypertension. Also patient admits to not taking his Lasix because of his driving not wanting to stop to go to the bathroom for the last 2 weeks also his diet has been inconsistent [place] salty foods had a long discussion about this yesterday with him and his family daughter and (2) Hypertensive urgency Current Visit: Yes Status: Acute Comment: Control the present time (3) Diabetes 1.5, managed as type 2 Current Visit: No Status: Acute (4) Edema Current Visit: No Status: Acute Comment: Resolved (5) Hypertension Current Visit: Yes Status: Acute Comment: Controlled (6) Sleep apnea Current Visit: No Status: Acute Comment: CPAP (7) Atrial fibrillation Current Visit: Yes Status: Chronic Comment: Rate controlled I decreased his beta sanford carvedilol from 6.25- 2.125 because he is having some heartbeats of around 37-40 on telemetry (8) Hypokalemia due to loss of potassium Current Visit: Yes Status: Acute Comment: Replaced
[2017-02-09] MEDS: FUROSEMIDE 40 MG TABLET PO SCH (12:50)
[2017-02-09] MEDS: Insulin Glargine SoloStar Inj 100 UNIT/ML INSULN.PEN SUBCUT SCH (20:20)
[2017-02-09] MEDS: ATORVASTATIN 20 MG TABLET PO SCH (20:21)
[2017-02-09] MEDS: CARVEDILOL 3.125 MG TABLET PO SCH (20:21)
[2017-02-09] MEDS: Warfarin 5 MG TAB PO SCH (22:28)
[2017-02-10 00:39] VITALS: RESP 20
[2017-02-10] MEDS: NORMAL SALINE 10 ML SYRINGE FLUSH IVP PRN (04:22)
[2017-02-10] MEDS: HEPARIN 500 UNIT/5 ML SYRINGE FOR CENTRAL LINE IVP PRN (04:22)
[2017-02-10] MEDS: Levothyroxine Sodium 100 MCG, Levothyroxine Sodium 50 MCG PO SCH ×2 (04:30)
[2017-02-10 04:37] LABS: BASOPHILS # (AUTO) 0.17 10*3/UL; BASOPHILS % (AUTO) 2.1 % (0-1); EOSINOPHILS # (AUTO) 0.59 10*3/UL; EOSINOPHILS % (AUTO) 7.3 % (0-8); HEMATOCRIT 41.3 % (42.0-52.0); HEMOGLOBIN 13.8 g/dL (14.0-18.0); LYMPHOCYTES # (AUTO) 2.36 10*3/uL; MEAN CORPUSCULAR HEMOGLOBIN 30.7 PG (27-31); MEAN CORPUSCULAR HGB CONC 33.4 g/dL (33-37); MEAN PLATELET VOLUME 10.7 FL (7.4-12.2); MONOCYTES # (AUTO) 0.91 10*3/UL (0.3-0.8); MONOCYTES % (AUTO) 11.2 % (5-15); NEUTROPHILS # (AUTO) 4.08 10*3/UL; NEUTROPHILS % (AUTO) 50.2 % (50-80); RED BLOOD COUNT 4.49 10^6/uL (4.70-6.10)
[2017-02-10 04:42] LABS: PLATELET MORPHOLOGY COMMENT NORMAL MORPHOLOGY (NORM); RBC MORPHOLOGY COMMENT NORMAL MORPHOLOGY (NORM); WBC MORPHOLOGY COMMENT NORMAL MORPHOLOGY (NORM)
[2017-02-10 04:50] LABS: BUN/CREATININE RATIO 24.44 (6-20); SERUM ALBUMIN 3.8 g/dL (3.5-4.8)
[2017-02-10] MEDS: FUROSEMIDE 40 MG TABLET PO SCH ×2 (06:40→12:39)
[2017-02-10] MEDS: Insulin Lispro Flexpen 300 UNIT/3 ML INSULN.PEN SUBCUT SCH ×2 (06:40→11:40)
[2017-02-10] MEDS: ASPIRIN EC 81 MG TABLET PO SCH (08:33)
[2017-02-10] MEDS: BENAZEPRIL 10 MG TABLET PO SCH (08:33)
[2017-02-10] MEDS: POTASSIUM CHLORIDE 20 MEQ TAB PO SCH (08:33)
[2017-02-10] MEDS: CARVEDILOL 3.125 MG TABLET PO SCH (08:34)
[2017-02-10 15:05] VITALS: TEMP 97.6
--- NOTE | 2017-02-10 15:44 | DCSUMMARY ---
Hospitalization Summary Admit Date: 02/06/17 Discharge Date: 02/10/17 Primary Diagnosis:: congestive heart failure, resolved acute episode Hospital Course: This very pleasant 76-year-old male who came in complaining of shortness of breath and was admitted with acute congestive heart failure. It was presumed that it was right-sided congestive heart failure and an echocardiogram showed a low normal ejection fraction and possible aortic stenosis. The patient was diuresed and diuresed over 13 pounds. He felt significantly better and his shortness of breath improved. He had some medication adjustments as he was quite hypertensive on admission as well. That seemed to calm down by doing some medication adjustments. The patient's potassium was quite low and it was replaced. 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 Now that he understands how Lasix works, the patient states that he thinks that he'll be much more compliant with that. He had a lot of questions about diet and exercise, and we answered those in depth regarding increased vegetable intake, at least 30 minutes of walking per day, and a follow-up with test eng as well. I am notably concerned that the echocardiogram did not have the best visualization of the aortic valve and it could represent aortic stenosis. Given that, I recommended that the patient have an echocardiogram done with [facility] with a dedicated echocardiogram technologist. I wrote the prescription for that as well. I advised patient to resume his metformin on Sunday for his diabetes. He had a contrast study here that did not show any evidence of pulmonary emboli. No completes of chest pain, shortness breath, nausea or vomiting today. He states his shortness breath is significantly improved. Assessment and Plan: 1. As per discharge assessments noted 2. Disposition: Patient is discharged home. 3. Condition on discharge, stable and improved. 4. Diet: regular diet/diabetic diet 5. Activities: resume normal activities 6. Follow-Up: 1. Dr. Pineda in [address] Fernandez in one week 7. Medications at the Time of Discharge: Home Medications Medication Instructions Recorded Confirmed Type Lo-Dose Aspirin Ec 1 tab ORAL QD tab 02/28/11 02/06/17 History Glucosamine HCl/Chondro Andrade A 1 cap PO .DAILY 08/07/11 02/06/17 History [Glucosamine Chondroitin Cap] Multivitamins W-Minerals/Lut 1 tab PO DAILY #0 tab 09/20/12 02/06/17 Clinic [Centrum Silver Tablet] Cinnamon Bark/Chromium Picolin 500 mg PO DAILY 12/21/13 02/06/17 History [Cinnamon Plus Chromium Capsule] Bipap 1 unit INH BEDTIME #1 unit 04/03/16 02/06/17 History Amlodipine Besylate 1 tab PO QD #90 tab 12/01/16 02/06/17 Clinic Atorvastatin Calcium 20 mg PO DAILY #90 tab 12/01/16 02/06/17 Clinic Benazepril HCl 1 tab PO DAILY #90 tab 12/01/16 02/06/17 Clinic Furosemide 1 tab PO BID #180 tab 12/01/16 02/06/17 Clinic Insulin Glargine SoloStar Inj 45 unit SUBCUT QD #3 box 12/01/16 02/06/17 Clinic [Lantus SoloStar Inj] Levothyroxine Sodium [Synthroid] 150 mcg PO DAILY #90 tab 12/01/16 02/06/17 Clinic Metformin HCl 1 tab PO BID #180 tab 12/01/16 02/06/17 Clinic Potassium Chloride 1 tab ORAL QD #90 tab 12/01/16 02/06/17 Clinic Warfarin Sodium 1 tab PO ASDIR #120 tab 12/01/16 02/06/17 Clinic Pen Needle, Diabetic [Unifine 1 each QID #120 unit 12/25/16 02/06/17 Clinic Pentips Plus] Insulin Aspart [Novolog Flexpen] 3 - 23 unit SUBCUT AC #3 unit 01/03/17 Clinic Sildenafil Citrate [Viagra] 100 mg PO PRN PRN 02/06/17 02/06/17 History Carvedilol [Coreg] 3.125 mg PO BID #60 tab 02/10/17 Rx 8. Time, care, counseling and coordination of care for this discharge is greater than 30 minutes. Exam - Vitals Vital Signs: Vital Signs Temperature 97.6 F Temperature Source Temporal Artery Scan Pulse Rate [Apical] 58 Pulse Rate [Pulse Oximeter] 61 Pulse Rate [Telemetry] 64 Pulse Rate 47 Respiratory Rate 20 Blood Pressure [Right Arm] 156/70 Blood Pressure 155/68 Pulse Ox 92 Oxygen Flow Rate 2 Oxygen Delivery Method Room Air Height 5 ft 11 in Weight 258 lb 6.4 oz - General General Appearance: POSITIVE: No Acute Distress, Cooperative - Respiratory Respiratory Exam: POSITIVE: Clear to Auscultation - Bilaterally, Breathing Non Labored - Cardiovascular Cardiovascular Exam: POSITIVE: RRR, No Murmur, No Clicks, No Gallops, No Rubs, No JVD - GI/Abdominal GI/Abdominal Exam: POSITIVE: Normal Bowel Sounds, Non Tender, Non Distended, Soft - Extremities Extremities Exam: POSITIVE: No Clubbing Present, No Edema Present, No Cyanosis Present - Neurological Neurological Exam: POSITIVE: Alert, Oriented x 3, Normal Gait, No Facial Droop, Speech Intact / Clear, Moves All Extremities Equally Data Perinent Studies: Laboratory Results 02/06/17 02/06/17 02/07/17 Range/Units 10:17 19:12 01:15 WBC 6.85 (4.8-10.8) 10^3/uL RBC 4.44 L (4.70-6.10) 10^6/uL Hgb 13.6 L (14.0-18.0) g/dL Hct 40.9 L (42.0-52.0) % MCV 92.1 H (80-90) FL MCH 30.6 (27-31) PG MCHC 33.3 (33-37) g/dL RDW Std Deviation 50.3 H (39-50) fL RDW Coeff of [place] 15.5 H (11.5-14.5) % Plt Count 128 L (140-350) 10*3/uL MPV 11.1 (7.4-12.2) FL Immature Gran % (Auto) 0.1 (0-5) % Neut % (Auto) 62.6 (50-80) % Lymph % (Auto) 21.3 (10-50) % [place] % (Auto) 8.9 (5-15) % Eos % (Auto) 5.3 (0-8) % Baso % (Auto) 1.8 H (0-1) % Immature Gran # (Auto) 0.01 10*3/UL Neut # (Auto) 4.29 10*3/UL Lymph # (Auto) 1.46 10*3/uL [place] # (Auto) 0.61 (0.3-0.8) 10*3/UL Eos # (Auto) 0.36 10*3/UL Baso # (Auto) 0.12 10*3/UL WBC Morphology Comment Normal morphology (NORM) Plt Morphology Comment Normal morphology (NORM) RBC Morph Comment Normal morphology (NORM) PT 26.2 H (9.7-11.4) secs INR 2.50 (0.00-5.90) N/A D-Dimer < 0.19 (0.00-0.59) mg/L Sodium 141 (135-145) meq/L Potassium 3.5 L (3.8-5.2) meq/L Chloride 107 (98-112) meq/L Carbon Dioxide 22 L (23-33) meq/L Anion Gap 12 (5-20) BUN 15 (7-22) mg/dL Creatinine 0.8 (0.70-1.50) mg/dL Estimated GFR (>60 ml/min/1.73m(2)) BUN/Creatinine Ratio 18.75 (6-20) Glucose 199 H (78-110) mg/dL Calculated Osmolality 298.0 H (267-292) mOsm/kg Calcium 8.9 (8.7-10.7) mg/dL Phosphorus (2.4-4.3) mg/dl Magnesium 1.7 (1.6-2.4) mg/dL Total Bilirubin 1.5 H (0.3-1.2) mg/dL AST 27 (21-57) IU/L ALT 30 (21-72) IU/L Alkaline Phosphatase 76 (38-126) IU/L CK-MB (CK-2) 2.34 (0.00-5.00) NG/ML Troponin I < 0.012 < 0.012 0.013 (< 0.040) ng/mL NT-Pro-B Natriuret Pep 545 H (0-450) PG/ML Total Protein 7.1 (6.1-8.0) g/dL Albumin 4.1 (3.5-4.8) g/dL Globulin 3.0 (2.50-4.10) g/dL Albumin/Globulin Ratio 1.30 (1.3-2.0) mg/g Amylase 64 (30-110) U/L Lipase 154 (23-300) IU/L 02/07/17 02/08/17 02/09/17 Range/Units 06:10 04:22 10:00 WBC 12.36 H 9.41 (4.8-10.8) 10^3/uL RBC 4.69 L 4.58 L (4.70-6.10) 10^6/uL Hgb 14.2 13.8 L (14.0-18.0) g/dL Hct 42.6 41.7 L (42.0-52.0) % MCV 90.8 H 91.0 H (80-90) FL MCH 30.3 30.1 (27-31) PG MCHC 33.3 33.1 (33-37) g/dL RDW Std Deviation 50.1 H 50.0 (39-50) fL RDW Coeff of [place] 15.3 H 15.3 H (11.5-14.5) % Plt Count 175 129 L (140-350) 10*3/uL MPV 11.1 10.3 (7.4-12.2) FL Immature Gran % (Auto) 0.2 0.2 (0-5) % Neut % (Auto) 72.8 61.2 (50-80) % Lymph % (Auto) 13.8 22.5 (10-50) % [place] % (Auto) 9.5 10.9 (5-15) % Eos % (Auto) 2.9 3.9 (0-8) % Baso % (Auto) 0.8 1.3 H (0-1) % Immature Gran # (Auto) 0.03 0.02 10*3/UL Neut # (Auto) 8.99 5.75 10*3/UL Lymph # (Auto) 1.71 2.12 10*3/uL [place] # (Auto) 1.17 H 1.03 H (0.3-0.8) 10*3/UL Eos # (Auto) 0.36 0.37 10*3/UL Baso # (Auto) 0.10 0.12 10*3/UL WBC Morphology Comment Normal morphology Normal morphology (NORM) Plt Morphology Comment Normal morphology Normal morphology (NORM) RBC Morph Comment Normal morphology Normal morphology (NORM) PT (9.7-11.4) secs INR (0.00-5.90) N/A D-Dimer (0.00-0.59) mg/L Sodium 141 139 137 (135-145) meq/L Potassium 3.1 L 2.9 L 4.6 D (3.8-5.2) meq/L Chloride 99 97 L 102 (98-112) meq/L Carbon Dioxide 29 31 23 (23-33) meq/L Anion Gap 13 11 12 (5-20) BUN 13 14 23 H (7-22) mg/dL Creatinine 0.9 0.9 0.9 (0.70-1.50) mg/dL Estimated GFR (>60 ml/min/1.73m(2)) BUN/Creatinine Ratio 14.44 15.55 25.55 H (6-20) Glucose 113 H 153 H 266 H (78-110) mg/dL Calculated Osmolality 292.0 291.0 296.0 H (267-292) mOsm/kg Calcium 8.8 8.7 9.0 (8.7-10.7) mg/dL Phosphorus 3.9 (2.4-4.3) mg/dl Magnesium 1.7 2.0 (1.6-2.4) mg/dL Total Bilirubin 2.7 H 2.7 H 1.7 H (0.3-1.2) mg/dL AST 29 24 36 (21-57) IU/L ALT 32 35 37 (21-72) IU/L Alkaline Phosphatase 69 65 73 (38-126) IU/L CK-MB (CK-2) (0.00-5.00) NG/ML Troponin I 0.013 (< 0.040) ng/mL NT-Pro-B Natriuret Pep (0-450) PG/ML Total Protein 7.3 6.8 7.0 (6.1-8.0) g/dL Albumin 4.1 3.8 4.0 (3.5-4.8) g/dL Globulin 3.2 3.0 3.0 (2.50-4.10) g/dL Albumin/Globulin Ratio 1.20 L 1.20 L 1.30 (1.3-2.0) mg/g Amylase (30-110) U/L Lipase (23-300) IU/L /24/17 Range/Units 04:33 WBC 8.12 (4.8-10.8) 10^3/uL RBC 4.49 L (4.70-6.10) 10^6/uL Hgb 13.8 L (14.0-18.0) g/dL Hct 41.3 L (42.0-52.0) % MCV 92.0 H (80-90) FL MCH 30.7 (27-31) PG MCHC 33.4 (33-37) g/dL RDW Std Deviation 49.4 (39-50) fL RDW Coeff of [place] 15.1 H (11.5-14.5) % Plt Count 166 (140-350) 10*3/uL MPV 10.7 (7.4-12.2) FL Immature Gran % (Auto) 0.1 (0-5) % Neut % (Auto) 50.2 (50-80) % Lymph % (Auto) 29.1 (10-50) % [place] % (Auto) 11.2 (5-15) % Eos % (Auto) 7.3 (0-8) % Baso % (Auto) 2.1 H (0-1) % Immature Gran # (Auto) 0.01 10*3/UL Neut # (Auto) 4.08 10*3/UL Lymph # (Auto) 2.36 10*3/uL [place] # (Auto) 0.91 H (0.3-0.8) 10*3/UL Eos # (Auto) 0.59 10*3/UL Baso # (Auto) 0.17 10*3/UL WBC Morphology Comment Normal morphology (NORM) Plt Morphology Comment Normal morphology (NORM) RBC Morph Comment Normal morphology (NORM) PT (9.7-11.4) secs INR (0.00-5.90) N/A D-Dimer (0.00-0.59) mg/L Sodium 141 (135-145) meq/L Potassium 4.5 (3.8-5.2) meq/L Chloride 104 (98-112) meq/L Carbon Dioxide 26 (23-33) meq/L Anion Gap 11 (5-20) BUN 22 (7-22) mg/dL Creatinine 0.9 (0.70-1.50) mg/dL Estimated GFR (>60 ml/min/1.73m(2)) BUN/Creatinine Ratio 24.44 H (6-20) Glucose 115 H (78-110) mg/dL Calculated Osmolality 295.0 H (267-292) mOsm/kg Calcium 9.0 (8.7-10.7) mg/dL Phosphorus (2.4-4.3) mg/dl Magnesium (1.6-2.4) mg/dL Total Bilirubin 1.5 H (0.3-1.2) mg/dL AST 55 (21-57) IU/L ALT 36 (21-72) IU/L Alkaline Phosphatase 65 (38-126) IU/L CK-MB (CK-2) (0.00-5.00) NG/ML Troponin I (< 0.040) ng/mL NT-Pro-B Natriuret Pep (0-450) PG/ML Total Protein 6.8 (6.1-8.0) g/dL Albumin 3.8 (3.5-4.8) g/dL Globulin 3.0 (2.50-4.10) g/dL Albumin/Globulin Ratio 1.20 L (1.3-2.0) mg/g Amylase (30-110) U/L Lipase (23-300) IU/L Patient Problems - Patient Problem List (1) Congestive heart failure due to high blood pressure Current Visit: Yes Status: Acute (2) Hypertension Current Visit: Yes Status: Acute Qualifiers: Hypertension type: essential hypertension Qualified Description: Essential hypertension Qualifier Code(s): (I10) Essential (primary) hypertension (3) Hypokalemia due to loss of potassium Current Visit: Yes Status: Acute (4) Atrial fibrillation Current Visit: Yes Status: Chronic Qualifiers: Atrial fibrillation type: chronic Qualified Description: Chronic atrial fibrillation Qualifier Code(s): (I48.2) Chronic atrial fibrillation (5) Diabetes 1.5, managed as type 2 Current Visit: No Status: Acute (6) Sleep apnea Current Visit: No Status: Acute Qualifiers: Sleep apnea type: unspecified type Qualified Description: Sleep apnea, unspecified type Qualifier Code(s): (G47.30) Sleep apnea, unspecified
== END 2017-02-10 15:27 | disposition home or self-care (01) | DRG 293 ==
LOC: ER 09:30 → MED/SURG 11:18
PROVIDERS: ADMIT Internal Medicine; ATTEND Internal Medicine
DX: I50.9 Heart failure, unspecified (principal); I10 Essential (primary) hypertension; E87.6 Hypokalemia; I48.91 Unspecified atrial fibrillation; E11.9 Type 2 diabetes mellitus without complications; G47.30 Sleep apnea, unspecified
CPT/HCPCS: 36415; 36569; 71010; 71275; 76937; 80053; 80069; 82150; 82553; 82948; 83690; 83735; 83880; 84484; 85025; 85379; 85610; 93005; 93010; 93306; 93970; 94761; 99285; J1940; J7030; J7050

== ENCOUNTER → 2017-02-14 | Outpatient (CLI) | payer OTHER ==
[2017-02-14 06:51] LABS: HEMOGLOBIN A1C 7.73 % (4.2-6.0)
[2017-02-14 07:09] LABS: BUN/CREATININE RATIO 24.54 (6-20); CALCIUM 9.1 mg/dL (8.7-10.7); CHOL/HDL RATIO 3.41 RATIO (0-4.0); LDL CHOLESTEROL,CALCULATED 58.8 mg/dL; SERUM ALBUMIN 4.3 g/dL (3.5-4.8)
== END ==
LOC: LAB 06:26
PROVIDERS: ATTEND Family Medicine
DX: E11.9 Type 2 diabetes mellitus without complications (principal); Z79.4 Long term (current) use of insulin; I50.9 Heart failure, unspecified; I10 Essential (primary) hypertension
CPT/HCPCS: 36415; 80053; 80061; 83036

== ENCOUNTER → 2017-02-16 | Outpatient (CLI) | payer OTHER | LOC: MMPC 09:00 | PROVIDERS: ATTEND Family Medicine | DX: E11.9 Type 2 diabetes mellitus without complications (principal); I48.91 Unspecified atrial fibrillation; E78.5 Hyperlipidemia, unspecified; E03.9 Hypothyroidism, unspecified; R60.0 Localized edema | CPT/HCPCS: 99212; G0463 ==

== ENCOUNTER → 2017-03-26 | Outpatient (CLI) | payer OTHER | LOC: MMPC 09:00 | PROVIDERS: ATTEND Family Medicine | DX: Z79.01 Long term (current) use of anticoagulants (principal); Z51.81 Encounter for therapeutic drug level monitoring; I48.91 Unspecified atrial fibrillation | CPT/HCPCS: 85610 ==

== ENCOUNTER → 2017-04-02 | Outpatient (CLI) | payer OTHER | LOC: MMPC 09:00 | PROVIDERS: ATTEND Family Medicine | DX: Z79.01 Long term (current) use of anticoagulants (principal); Z51.81 Encounter for therapeutic drug level monitoring; I48.91 Unspecified atrial fibrillation | CPT/HCPCS: 85610 ==

== ENCOUNTER 2017-07-05 11:16 | Inpatient (IN) ==
[2017-07-05] MEDS ORDERED: DOCUSATE 100 MG CAPSULE PO PRN (12:19)
[2017-07-05] MEDS ORDERED: ONDANSETRON 4 MG/2 ML VIAL IVP PRN (12:19)
[2017-07-05] MEDS ORDERED: NORMAL SALINE 10 ML SYRINGE FLUSH IVP PRN (12:19)
[2017-07-05] MEDS ORDERED: ACETAMINOPHEN 325 MG TABLET PO PRN (12:19)
[2017-07-05] MEDS ORDERED: LIDOCAINE W/ SODIUM BICARB 0.5 ML SYR SUBD PRN (12:19)
[2017-07-05 12:52] LABS: Hematocrit [HCT] 38.8 % (42.0-52.0); Hemoglobin [HGB] 13.4 g/dL (14.0-18.0); MEAN CORPUSCULAR HEMOGLOBIN 31.7 PG (27-31); MEAN CORPUSCULAR HGB CONC 34.6 g/dL (33-37); MEAN CORPUSCULAR VOLUME 92 FL (80-90); RED BLOOD COUNT 4.24 10^6/uL (4.70-6.10)
[2017-07-05 12:53] LABS: BASOPHILS # (AUTO) 0.05 10*3/UL; BASOPHILS % (AUTO) 0.5 % (0-1); EOSINOPHILS # (AUTO) 0.36 10*3/UL; EOSINOPHILS % (AUTO) 3.8 % (0-8); LYMPHOCYTES # (AUTO) 1.94 10*3/uL; MEAN PLATELET VOLUME 8.6 FL (7.4-12.2); MONOCYTES # (AUTO) 0.9 10*3/UL (0.3-0.8); MONOCYTES % (AUTO) 9.6 % (5-15); NEUTROPHILS # (AUTO) 6.12 10*3/UL; NEUTROPHILS % (AUTO) 65.4 % (50-80); PLATELET MORPHOLOGY COMMENT NORMAL MORPHOLOGY (NORM); RBC MORPHOLOGY COMMENT NORMAL MORPHOLOGY (NORM); WBC MORPHOLOGY COMMENT NORMAL MORPHOLOGY (NORM)
[2017-07-05 13:07] LABS: BLOOD UREA NITROGEN 20 mg/dL (7-22); SERUM ALBUMIN 3.9 g/dL (3.5-4.8)
[2017-07-05] MEDS ORDERED: Vancomycin-PHA to Dose IV PRN (13:27)
--- NOTE | 2017-07-05 13:29 | PDOC ---
HPI - History of Present Illness Date and Time of Service: 07/05/2017 3 PM Chief Complaint: Swelling on the left fifth toe with drainage from the toe. History of Present Illness: This is a 76 years old old male with medical history significant for history of diabetes on insulin, hypertension, hyperlipidemia, atrial fibrillation on anticoagulation, and sleep apnea who had his the fifth left toe stubbed on Sunday at his house, he started to bleed from it his applied some hydrogen peroxide and was applying dressing changes but today they noticed swelling of the toe in addition to pus drainage and because of that he went to Dr. Patel clinic and was noted that the toe was infected and was seen by [facility] there. He Was Referred Here for Admission. He Doesn't Have Much Pain He Said He Has Neuropathy That Probably Started about 45 Days There Is Numbness and Tingling in the Area. There No Fever, No Shakes, No Cough, No Chills. Past Medical History Medical History: 1. Diabetes type II on insulin he had more than 20 years. 2. Diabetic neuropathy. 3. Atrial fibrillation on anticoagulation. 4. Hypertension. 5. Hyperlipidemia. 6. Admission back in January this year for congestive heart failure, ejection fraction was 50%, right atrium and right ventricle was severely enlarged, they could not see the aortic valve well then, it appeared to be a heavily calcified. 7. Sleep apnea. 8. Necrobiosis lipoidica diabeticorum, the said he infrequently have these developed a small also she would take care of those and resolve later on. They develop on the shins bilaterally. 9. Hypothyroidism Surgical History: 1. Had hip replacements before. 2. Appendectomy. 3. History of cervical spine fusion. 4. History of carpal tunnel surgeries Past Social History: Used to smoke, drinks occasionally, no drugs. Tobacco Use: Former Smoker In the Past 12 Months, Have Used or Abuse Any of the Following Substance: None Alcohol Use: Occasionally Medication / Allergies Home Medications: Home Medications Medication Instructions Recorded Confirmed Type Lo-Dose Aspirin Ec 1 tab ORAL QD tab 02/28/11 07/05/17 History Glucosamine HCl/Chondro Andrade A 1 cap PO .DAILY 08/07/11 07/05/17 History [Glucosamine Chondroitin Cap] Multivitamins W-Minerals/Lut 1 tab PO DAILY #0 tab 09/20/12 07/05/17 History [Centrum Silver Tablet] Cinnamon Bark/Chromium Picolin 500 mg PO DAILY 12/21/13 07/05/17 History [Cinnamon Plus Chromium Capsule] Bipap 1 unit INH BEDTIME #1 unit 04/03/16 07/05/17 History Amlodipine Besylate 1 tab PO QD #90 tab 12/01/16 07/05/17 Rx Atorvastatin Calcium 20 mg PO DAILY #90 tab 12/01/16 07/05/17 Rx Benazepril HCl 1 tab PO DAILY #90 tab 12/01/16 07/05/17 Rx Furosemide 1 tab PO BID #180 tab 12/01/16 07/05/17 Rx Insulin Glargine SoloStar Inj 45 unit SUBCUT QD #3 box 12/01/16 07/05/17 Rx [Lantus SoloStar Inj] Levothyroxine Sodium [Synthroid] 150 mcg PO DAILY #90 tab 12/01/16 07/05/17 Rx Metformin HCl 1 tab PO BID #180 tab 12/01/16 Rx Potassium Chloride 1 tab ORAL QD #90 tab 12/01/16 07/05/17 Rx Warfarin Sodium 1 tab PO ASDIR #120 tab 12/01/16 07/05/17 Rx Pen Needle, Diabetic [Unifine 1 ea MC QID #120 unit 12/25/16 07/05/17 Rx Pentips Plus] Insulin Aspart [Novolog Flexpen] 3 - 23 unit SUBCUT AC #3 unit 01/03/17 Rx Sildenafil Citrate [Viagra] 100 mg PO PRN PRN 02/06/17 07/05/17 History carvedilol 3.125 mg tablet 3.125 mg PO BID #180 tab 05/16/17 07/05/17 Rx Allergies/Adverse Reactions: Allergies 3 Allergy/AdvReac Type Severity Reaction Status Date / Time rofecoxib [From Vioxx] Allergy Severe swelling Verified 07/05/17 10:34 tongue,eyelids iodine topically Allergy Severe rash Uncoded 07/05/17 10:34 Review of Systems - Review of Systems All Systems: Reviewed & No Additional Complaints Except as Stated Exam - Vitals Vital Signs: Vital Signs Temperature 98 F Temperature Source Temporal Artery Scan Pulse Rate [Pulse Oximeter] 53 Pulse Rate [Apical] 53 Respiratory Rate 22 Blood Pressure [Left Arm] 134/64 Pulse Ox 95 Oxygen Flow Rate 98 Oxygen Delivery Method Room Air Height 6 ft Weight 262 lb - General General Appearance: No Acute Distress, Cooperative, Obese - Head Head Exam: Normal Inspection, Atraumatic - Eye Eye Exam: POSITIVE: Normal Appearance - ENT ENT Exam: POSITIVE: Normal Exam - Neck Neck Exam: Normal Inspection - Respiratory Respiratory Exam: POSITIVE: Clear to Auscultation - Bilaterally - Cardiovascular Cardiovascular Exam: POSITIVE: RRR - GI/Abdominal GI/Abdominal Exam: POSITIVE: Normal Bowel Sounds, Non Tender, Non Distended, Soft, No Organomegaly - Rectal Rectal Exam: POSITIVE: Deferred - External Exam: POSITIVE: Deferred - Extremities Additional Extremities Exam Details: The left fifth toe is swollen there is a pus drainage from one opening noted. There is a superficial ulceration also noted on the left anterior dunbar and developed few days ago according to the . - Back Back Exam: POSITIVE: Normal Inspection - Neurological Neurological Exam: POSITIVE: Alert, Oriented x 3, CN II-XII Intact, No Facial Droop, Moves All Extremities Equally - Psychiatric Psychiatric Exam: POSITIVE: Normal Affect Results - Labs CBC and BMP: 07/05/17 12:35 07/05/17 12:35 Assessment and Plan - Patient Problems (1) Abscess of fifth toe, left Current Visit: Yes Status: Acute Comment: There is an abscess in the left toe and possible underlying osteomyelitis, will take blood culture and put himon antibiotics Dr. Castrejon saw him and he plan to do I&D tomorrow. Will put on nothing by mouth after midnight. We did order an MRI. We did order chemistry, CBC, ESR and a blood culture. We'll start him on Invanz and vancomycin. Code(s): L02.612 - Cutaneous abscess of left foot (2) Diabetes mellitus Current Visit: Yes Status: Acute Comment: Continue insulin but I think will Back slightly on the dosage of the Lantus as he is going to be nothing by mouth after midnight. Code(s): E11.9 - Type 2 diabetes mellitus without complications (3) Atrial fibrillation Current Visit: No Status: Chronic Comment: Continue Coreg, his INR is 2.8 will give vitamin K to reverse the effect of its and repeat it tomorrow and will hold Coumadin for now. Code(s): I48.91 - Unspecified atrial fibrillation Qualifiers: Atrial fibrillation type: chronic Qualified Code(s): I48.2 - Chronic atrial fibrillation (4) Hypertension Current Visit: No Status: Acute Comment: Same medication but I think will hold off on his REBECCA inhibitor just because of the surgery. Code(s): I10 - Essential (primary) hypertension Qualifiers: Hypertension type: essential hypertension Qualified Code(s): I10 - Essential (primary) hypertension (5) History of congestive heart failure Current Visit: Yes Status: Acute Comment: This seemed to be compensated continue same medications. will hold off on the rebecca inhibitors though. Will order EKG. I think he can proceed with surgery I don't see a reason to hold off on the surgery as it is emergent, will deal with complication if they develop. Code(s): Z86.79 - Personal history of other diseases of the circulatory system
[2017-07-05] MEDS ORDERED: PHYTONADIONE 10 MG/1 ML AMPULE PO ONE (13:33)
[2017-07-05] MEDS: Ertapenem Inj 1 GM in Sodium Chloride 0.9% 100 ML IV SCH (15:06)
[2017-07-05] MEDS: FUROSEMIDE 40 MG TABLET PO SCH (15:07)
--- NOTE | 2017-07-05 15:46 | DI ---
LEFT FOOT, 07/05/2017 12:22 PM: Clinical History: Swelling of the left fifth toe. Previous Exam: None at this facility. 3 views are submitted. There is increased size in the soft tissues of the left little toe as well as increased density consistent with the clinical history of swelling. There is no radiopaque foreign archana dy or soft tissue gas. No ulcerations are identified. There is no periosteal new bone formation. The remainder of the foot examination is normal. Readin. Soft tissue swelling of the little toe without any bony abnormality. There is no radiopaque forei gn body or soft tissue gas. 2. If osteomyelitis is strongly suspected clinically, then followup films in 7-10 days are recommend ed. Alternatively, an MRI scan without and with IV contrast of the foot (toes) can be performed.
[2017-07-05] MEDS: Insulin Lispro Flexpen 300 UNIT/3 ML INSULN.PEN SUBCUT SCH ×2 (16:11→20:57)
--- NOTE | 2017-07-05 18:10 | CONSULT ---
Last Taken Vital Signs: Vital Signs - Last Taken Temperature 98.2 F 07/05/17 16:12 Pulse Rate 64 07/05/17 16:12 Respiratory Rate 20 07/05/17 16:12 Blood Pressure 164/70 07/05/17 16:12 Pulse Ox 93 07/05/17 16:12 Subjective: Kermit is doing well as an inpatient. He is having no pain. His transfer of care to inpatient status has gone smoothly. Objective: Left 5th toe abcess with open wound. The distal tip of the toe is bailey in color , with some CFT still noted. Serous bloody drainage. No bandage on wound at this time. Initial swab culture was performed in clinic today by Dr. Patel, with whom I saw Kermit initially. At that point we opened the abcess and noted it travels through and through the fifth toe, laterally to distal-plantar- medially. Radiograph complete left foot. Left foot toe soft tissue edema, no gas, no change in bone that represents osteomyelitis. It does appear that the distal and middle phalanges of the left fifth toe are one. MRI left foot complete. Radiologist report pending. MRI of left foot shows change or edema of 5th distal phalanx, but not of the proximal phalanx. Likely osteomyelitis distal phalanx. Also inflammation of soft tissue fat pad beneath the distal phalanx, possible small abcess may still be present. Assessment: 1. DM 2 with neuropathy. 2. Left fifth toe open wound with cellulitis and osteomyelitis distal phalanx. 3. Chronic peripheral edema, with left dunbar necrobiosis lipoidica diabeticorum wound. 4. Other medial history per Dr. Mccoy Plan: Patient is on IV antibiosis. Plan on surgical debridement of left fifth toe tomorrow at 11:00. Will repeat cultures of toe. May remove distal phalanx, and I discussed this with Kermit. - Patient Problems (1) Abscess of fifth toe, left Current Visit: Yes Status: Acute Priority: High Code(s): L02.612 - Cutaneous abscess of left foot (2) Diabetes mellitus Current Visit: Yes Status: Chronic Code(s): E11.9 - Type 2 diabetes mellitus without complications (3) Edema Current Visit: No Status: Acute Code(s): R60.9 - Edema, unspecified (4) Wound, open, foot Current Visit: No Status: Acute Code(s): S91.309A - Unspecified open wound, unspecified foot, initial encounter Qualifiers: Encounter type: initial encounter Laterality: left Qualified Code(s): S91.302A - Unspecified open wound, left foot, initial encounter; S91.302A - Unspecified open wound, left foot, initial encounter
[2017-07-05] MEDS ORDERED: Lactated Ringers 1,000 ML PRIMARY IV SCH (20:15)
--- NOTE | 2017-07-05 20:17 | DI ---
MRI LEFT FOOT SCAN, 07/05/2017 12:35 PM: Clinical History: Left fifth toe swelling. Previous Exam: None at this facility. Technique: Axial, coronal, and sagittal PDW and fat saturated PD. Motion correction sequences were a lso utilized. There is edema of the skin surrounding the little toe and on the plantar aspect of the little toe is a focus of hyperintensity in the fatty tissue. This focus of hyperintensity measures about 10 mm in d iameter and is inhomogeneous. No metallic or other foreign body is identified. No fractures are noted . The remaining toes are unremarkable. There is no joint effusion or abnormality of the flexor or ext ensor tendons. Readin. There is soft tissue swelling involving the skin in the subcutaneous tissues of the little toe wi th a more marked focus of hyperintensity measuring 10 mm in diameter on the plantar aspect of the dis charles phalanx of the little toe. This hyperintensity is inhomogeneous. It may represent a phlegmon or a focus of edema. There is no evidence of a metallic or other foreign body present. 2. The remainder of the examination is normal.
[2017-07-05] MEDS: CARVEDILOL 3.125 MG TABLET PO SCH (20:56)
[2017-07-05] MEDS: ATORVASTATIN 20 MG TABLET PO SCH (20:57)
[2017-07-05] MEDS: Insulin Glargine SoloStar Inj 100 UNIT/ML INSULN.PEN SUBCUT SCH (20:58)
[2017-07-05] MEDS ORDERED: metFORMIN 850 MG TABLET PO SCH (21:00)
[2017-07-05] MEDS ORDERED: Insulin Glargine SoloStar Inj 100 UNIT/ML INSULN.PEN SUBCUT SCH (21:00)
[2017-07-06] MEDS: Levothyroxine Sodium 100 MCG, Levothyroxine Sodium 50 MCG PO SCH ×2 (04:41)
[2017-07-06] MEDS: Insulin Lispro Flexpen 300 UNIT/3 ML INSULN.PEN SUBCUT SCH ×4 (07:21→20:51)
[2017-07-06] MEDS: FUROSEMIDE 40 MG TABLET PO SCH ×2 (07:22→13:01)
[2017-07-06] MEDS ORDERED: BENAZEPRIL HCL PO SCH (09:00)
[2017-07-06] MEDS: CARVEDILOL 3.125 MG TABLET PO SCH ×2 (09:33→20:51)
[2017-07-06] MEDS: POTASSIUM CHLORIDE 20 MEQ TAB PO SCH (09:33)
--- NOTE | 2017-07-06 09:39 | EKG ---
[address] [place] [address] Measurements Intervals [facility] Rate: 56 P: GA: 0 QRS: 66 QRSD: 105 T: 4 QT: 471 QTc: 462 Interpretive Statements ATRIAL FIBRILLATION WITH SLOW VENTRICULAR RESPONSE PROLONGED QT INTERVAL Compared to ECG 02/07/2017 06:25:31 T-wave abnormality no longer present Electronically Signed On 07-07-17 11:35:25 MST by Terry Carroll [email or web address]
[2017-07-06] MEDS ORDERED: BACITRACIN 50,000 UNIT VIAL IRRIG ONE (09:49)
[2017-07-06] MEDS ORDERED: Sodium Chloride 0.9% vial 20 ML ONE (09:49)
[2017-07-06] MEDS ORDERED: LIDOCAINE 2% 20 MG/ML - 20 ML VIAL ONE (09:57)
[2017-07-06] MEDS ORDERED: BUPivacaine Inj 0.5% PF (5mg/ml) 10ml vial ONE (09:57)
[2017-07-06] MEDS ORDERED: fentaNYL Inj 100 MCG/2 ML VIAL ONE (10:24)
[2017-07-06] MEDS ORDERED: MIDAZOLAM 5 MG/1 ML ONE (10:24)
[2017-07-06] MEDS ORDERED: LIDOCAINE W/ SODIUM BICARB 0.5 ML SYR ONE (10:42)
--- NOTE | 2017-07-06 11:26 | GEN.OPNOTE ---
Operative Report Surgeon: Umesh Castrejon DPM Anesthesia Type: MAC, None (No local needed secodary to significant peripheral neuropathy.) Anesthesia Provider: David Casiano CRNA Surgery Date: 07/06/17 Preoperative Diagnosis: Ulcer / Abcess of left 5th toe. Diabetic wound infection left 5th toe. Postoperative Diagnosis: Same Procedure: Incision and Drainage Left 5th toe including bone. Estimated Blood Loss (mL): 5 (no tourniquet used.) Fluids: IV vancomycin was being continued per schedule. Complications: None Findings at Surgery: Soft tissue necrosis and the plantar pulp of the left fifth toe. The bone was noted to be hard. Description of Procedure: The patient from his inpatient status down to same-day surgery. Monitored anesthesia care was provided. No local block was needed secondary to the patient's severe peripheral neuropathy. The patient's left foot was prepped and draped in the usual sterile fashion utilizing a Hibiclens scrub. A timeout was performed. On examination of the left fifth toe there is a lateral ulceration, and a plantar medial exit point on the other side of the toe plantar pulp. Initially disease with past through and through the toe. Deep cultures were taken aerobic and anaerobic. The 2 wounds were then incised creating a plantar flap, resembling a smiley face incision of the tip of toe. Necrotic tissues of the fifth toe plantar pulp were then excised sharply. Copious irrigation was then performed of the toe utilizing bacitracin in saline through pulse lavage. Throughout the procedure ~1500 mL of lavage was used. A biopsy of the distal phalanx lateral plantar condyle which was just underneath the original lateral ulceration was taken and cemented for pathology. There wound was again irrigated. All necrotic and slough tissues have been debrided from the wound. A single suture was placed to rotate the plantar flap to help cover the original lateral wound. The medial aspect between the fourth and fifth toes plantarly was left open to drain and heal by secondary intention. A quarter inch Nu Gauze drain was placed in the wound. And the toe was dressed with fluffs, Kerlix, and a Coban dressing. The patient tolerated the procedure well. All wound edges had been noted to bleed and had good capillary refill. A total of 5 mL blood loss was noted. The patient will be returned to his inpatient status.
--- NOTE | 2017-07-06 12:01 | CRNA.PROGR ---
Anesthesia Time - - Start date: 07/06/17 End date: 07/06/17 - Procedure/Recovery Time Anesthesia : Time In: 10:43 Anesthesia : Time Out: 11:20 Anesthesia : Total Time: 37 - Total Anesthesia Time Total Anesthesia Time (minutes): 37 - Other Weight: 118.841 kg Height: 6 ft 2 in Body Mass Index (BMI): 33.6 Physical Status: P3 Anesthesia Type: MAC (I&D right 5th toe)
--- NOTE | 2017-07-06 12:01 | CRNA.PROGR ---
Post Anesthesia Phase II - Post Anesthesia Phase II Patient Stable and Discharged To: Phase II Care Assumed By Surgeon: Umesh Castrejon DPM Temperature: 97.7 F Pulse Rate: 65 Respiratory Rate: 18 Blood Pressure: 139/68 Pulse Ox: 93 Total Analy Score at Discharge: 10 Post Anesthesia Discharge Criteria Met: Yes
[2017-07-06] MEDS: Ertapenem Inj 1 GM in Sodium Chloride 0.9% 100 ML IV SCH (14:53)
[2017-07-06] MEDS ORDERED: Sodium Chloride 0.9% 0 ML ONE (14:57)
--- NOTE | 2017-07-06 20:32 | PDOC(PROG) ---
Date and Time of Service: 07/06/20172029 Interval History: No completes of chest pain, shortness breath, nausea or vomiting, diarrhea, or abdominal pain. The pain is well controlled, the patient admits to having some decreased sensation in his feet overall. I spoke with Dr. Esteves, and at this time, I will go ahead and de-escalate antibiotics to Ancef, continue that IV through tomorrow and we will see what the patient's that. If he continues to do well, may start him on oral therapy and have him follow with infectious disease clinic this week and we will call Sunday for an appointment. Wound care via physical therapy. Dr. Castrejon follow- up sometime later this next week. Objective : Data - Labs CBC and BMP: 07/05/17 12:35 07/05/17 12:35 Additional Lab Results: Laboratory Results 07/05/17 07/05/17 07/05/17 Range/Units 12:35 12:35 12:35 WBC 9.4 (4.8-10.8) 10^3/uL RBC 4.24 L (4.70-6.10) 10^6/uL Hgb 13.4 L (14.0-18.0) g/dL Hct 38.8 L (42.0-52.0) % MCV 92 H (80-90) FL MCH 31.7 H (27-31) PG MCHC 34.6 (33-37) g/dL RDW Coeff of Ashley 12.6 (11.5-14.5) % Plt Count 148 (140-350) 10*3/uL MPV 8.6 (7.4-12.2) FL Neut % (Auto) 65.4 (50-80) % Lymph % (Auto) 20.7 (10-50) % Ferry % (Auto) 9.6 (5-15) % Eos % (Auto) 3.8 (0-8) % Baso % (Auto) 0.5 (0-1) % Neut # (Auto) 6.12 10*3/UL Lymph # (Auto) 1.94 10*3/uL Ferry # (Auto) 0.9 H (0.3-0.8) 10*3/UL Eos # (Auto) 0.36 10*3/UL Baso # (Auto) 0.05 10*3/UL WBC Morphology Comment Normal morphology (NORM) Plt Morphology Comment Normal morphology (NORM) RBC Morph Comment Normal morphology (NORM) ESR 31 H (0-15) MM/HR PT (9.7-11.4) secs INR (0.00-5.90) N/A Sodium 141 (135-145) meq/L Potassium 3.9 (3.8-5.2) meq/L Chloride 106 (98-112) meq/L Carbon Dioxide 24 (23-33) meq/L Anion Gap 11 (5-20) BUN 20 (7-22) mg/dL Creatinine 0.8 (0.70-1.50) mg/dL BUN/Creatinine Ratio 25.00 H (6-20) Glucose 150 H (78-110) mg/dL Calculated Osmolality 297.0 H (267-292) mOsm/kg Calcium 9.4 (8.7-10.7) mg/dL Total Bilirubin 1.2 (0.3-1.2) mg/dL AST 24 (21-57) IU/L ALT 33 (21-72) IU/L Alkaline Phosphatase 103 (38-126) IU/L Total Protein 7.2 (6.1-8.0) g/dL Albumin 3.9 (3.5-4.8) g/dL Globulin 3.4 (2.50-4.10) g/dL Albumin/Globulin Ratio 1.10 L (1.3-2.0) mg/g 07/05/17 07/06/17 Range/Units 12:35 06:11 WBC (4.8-10.8) 10^3/uL RBC (4.70-6.10) 10^6/uL Hgb (14.0-18.0) g/dL Hct (42.0-52.0) % MCV (80-90) FL MCH (27-31) PG MCHC (33-37) g/dL RDW Coeff of Ashley (11.5-14.5) % Plt Count (140-350) 10*3/uL MPV (7.4-12.2) FL Neut % (Auto) (50-80) % Lymph % (Auto) (10-50) % Ferry % (Auto) (5-15) % Eos % (Auto) (0-8) % Baso % (Auto) (0-1) % Neut # (Auto) 10*3/UL Lymph # (Auto) 10*3/uL Ferry # (Auto) (0.3-0.8) 10*3/UL Eos # (Auto) 10*3/UL Baso # (Auto) 10*3/UL WBC Morphology Comment (NORM) Plt Morphology Comment (NORM) RBC Morph Comment (NORM) ESR (0-15) MM/HR PT 30.2 H 15.1 H (9.7-11.4) secs INR 2.82 1.42 (0.00-5.90) N/A Sodium (135-145) meq/L Potassium (3.8-5.2) meq/L Chloride (98-112) meq/L Carbon Dioxide (23-33) meq/L Anion Gap (5-20) BUN (7-22) mg/dL Creatinine (0.70-1.50) mg/dL BUN/Creatinine Ratio (6-20) Glucose (78-110) mg/dL Calculated Osmolality (267-292) mOsm/kg Calcium (8.7-10.7) mg/dL Total Bilirubin (0.3-1.2) mg/dL AST (21-57) IU/L ALT (21-72) IU/L Alkaline Phosphatase (38-126) IU/L Total Protein (6.1-8.0) g/dL Albumin (3.5-4.8) g/dL Globulin (2.50-4.10) g/dL Albumin/Globulin Ratio (1.3-2.0) mg/g - EKG Data -: EKG Interpreted by Co Rate: Bradycardia - EKG Data EKG Interpretation: Other (Irregularly irregular, atrial fibrillation) Objective : Exam - General General Appearance: No Acute Distress, Cooperative Additional General Exam Details: Vital Signs - Last Taken Temperature 97.9 F 07/06/17 17:00 Pulse Rate 57 L 07/06/17 17:00 Respiratory Rate 18 07/06/17 17:00 Blood Pressure 163/75 07/06/17 17:00 Pulse Ox 92 07/06/17 17:00 - Head Head Exam: Normal Inspection, Normocephalic, Atraumatic - Eye Eye Exam: No Scleral Icterus - ENT ENT Exam: Mucous Membranes Moist - Respiratory Respiratory Exam: Clear to Auscultation - Bilaterally, Breathing Non Labored - Cardiovascular Cardiovascular Exam: No Murmur, No Clicks, No Gallops, No Rubs, Irregular Rhythm, No JVD - GI/Abdominal GI/Abdominal Exam: Normal Bowel Sounds, Non Tender, Non Distended, Soft - Extremities Extremities Exam: +1 Edema Additional Extremities Exam Details: Left lower extremity is bandaged, dressing is clean, dry, intact - Neurological Neurological Exam: Alert, Oriented x 3, No Facial Droop, Speech Intact / Clear, Moves All Extremities Equally Assessment and Plan - Patient Problems (1) Diabetic infection of left foot Current Visit: Yes Status: Acute Code(s): E11.69 - Type 2 diabetes mellitus with other specified complication; L08.9 - Local infection of the skin and subcutaneous tissue, unspecified (2) Abscess of fifth toe, left Current Visit: Yes Status: Acute Priority: High Onset Date: ~06/30/17 Code(s): L02.612 - Cutaneous abscess of left foot (3) Hypertension Current Visit: Yes Status: Chronic Code(s): I10 - Essential (primary) hypertension Qualifiers: Hypertension type: essential hypertension Qualified Code(s): I10 - Essential (primary) hypertension (4) Diabetes mellitus Current Visit: Yes Status: Chronic Code(s): E11.9 - Type 2 diabetes mellitus without complications Qualifiers: Diabetes mellitus type: type 2 Diabetes mellitus complication status: with neurologic complications Diabetes mellitus complication detail: with autonomic neuropathy Diabetes mellitus half-way insulin use: with buttermaker use Qualified Code(s): E11.43 - Type 2 diabetes mellitus with diabetic autonomic (poly)neuropathy; Z79.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 Check CBC with differential and basic metabolic panel tomorrow Wound care as per PT. Hopefully we can get the patient home and the next day or 2 on an oral regimen and have the patient continue to follow for infection with infectious disease and wound care per Dr. Castrejon. Resume Coumadin and check PT and INR in a.m.
[2017-07-06] MEDS: ATORVASTATIN 20 MG TABLET PO SCH (20:51)
[2017-07-06] MEDS: Insulin Glargine SoloStar Inj 100 UNIT/ML INSULN.PEN SUBCUT SCH (20:52)
[2017-07-06] MEDS: ceFAZolin Inj 2 GM in Sodium Chloride 0.9% 100 ML IV SCH (21:00)
[2017-07-06] MEDS ORDERED: Warfarin 5 MG TAB PO SCH (21:00)
[2017-07-07] MEDS: Levothyroxine Sodium 100 MCG, Levothyroxine Sodium 50 MCG PO SCH ×2 (04:46)
[2017-07-07] MEDS: ceFAZolin Inj 2 GM in Sodium Chloride 0.9% 100 ML IV SCH ×2 (04:47→12:42)
[2017-07-07] MEDS: FUROSEMIDE 40 MG TABLET PO SCH ×2 (06:54→13:37)
[2017-07-07] MEDS: Insulin Lispro Flexpen 300 UNIT/3 ML INSULN.PEN SUBCUT SCH ×2 (06:56→12:06)
[2017-07-07 07:23] LABS: BLOOD UREA NITROGEN 14 mg/dL (7-22)
[2017-07-07 07:33] LABS: Hematocrit [HCT] 39.6 % (42.0-52.0); Hemoglobin [HGB] 13.5 g/dL (14.0-18.0); MEAN CORPUSCULAR HEMOGLOBIN 31.1 PG (27-31); MEAN CORPUSCULAR HGB CONC 34.1 g/dL (33-37); MEAN CORPUSCULAR VOLUME 91 FL (80-90); RED BLOOD COUNT 4.34 10^6/uL (4.70-6.10)
[2017-07-07 07:34] LABS: BASOPHILS % (AUTO) 0.5 % (0-1); EOSINOPHILS % (AUTO) 5.7 % (0-8); LYMPHOCYTES # (AUTO) 1.99 10*3/uL; MEAN PLATELET VOLUME 8.8 FL (7.4-12.2); MONOCYTES % (AUTO) 8.9 % (5-15); NEUTROPHILS # (AUTO) 5.45 10*3/UL; NEUTROPHILS % (AUTO) 62.2 % (50-80)
[2017-07-07 07:35] LABS: BASOPHILS # (AUTO) 0.04 10*3/UL; MONOCYTES # (AUTO) 0.78 10*3/UL (0.3-0.8); PLATELET MORPHOLOGY COMMENT NORMAL MORPHOLOGY (NORM); RBC MORPHOLOGY COMMENT NORMAL MORPHOLOGY (NORM); WBC MORPHOLOGY COMMENT NORMAL MORPHOLOGY (NORM)
[2017-07-07] MEDS: POTASSIUM CHLORIDE 20 MEQ TAB PO SCH (09:47)
[2017-07-07] MEDS: CARVEDILOL 3.125 MG TABLET PO SCH (09:47)
[2017-07-07 11:50] VITALS: BP 156/80; RESP 20; TEMP 98.1; O2SAT 93
[2017-07-07] MEDS ORDERED: POTASSIUM CHLORIDE 20 MEQ TAB PO ONE (12:11)
--- NOTE | 2017-07-07 15:13 | DCSUMMARY ---
Hospitalization Summary Admit Date: 07/05/17 Discharge Date: 07/07/17 Primary Diagnosis:: left diabetic foot infection with abscess/cellulitis Secondary Diagnosis:: Status post bone biopsy distal portion of the fifth toe on left foot, no clinical evidence of osteomyelitis, cultures thus far grown out beta hemolytic strep. Hospital Course: This very pleasant 76-year-old male with diabetes mellitus type II, hypothyroidism, hypertension, amongst other problems. He came in for evaluation after being seen in the podiatry office with a left toe infection/ cellulitis. There is concern for osteomyelitis but MRI scan and x-rays were negative for any bone signal abnormality that would suggest osteomyelitis. He was taken to the operating room for wound debridement, and at that time deep cultures and some bone were taken and biopsy. Those results are pending, but initial culture showed beta hemolytic strep growing. He was placed initially on Invanz and vancomycin, but I de-escalated this therapy to Ancef. He has been afebrile, but his white blood cell count appears controlled and his swelling has significantly improved. He has no pain. At this time, we will have him discharged home to continue outpatient course of antibiotic therapy with Keflex due to the beta hemolytic strep, nonpurulent, and he will follow with [facility], podiatry, and his primary physician, Dr. Pineda. His other medical issues were well controlled during the hospital stay and did not present exacerbations. 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 This all started when the patient was barefoot in his house and had a stent of his toe. I advised that he wear some sort of slippery and to protect his toes overall from these types of injuries and I advised him and his to check his they already do. No complains of chest pain, shortness breath, nausea or vomiting today. Assessment and Plan: 1. As per discharge assessments noted 2. Disposition: Patient is discharged home. 3. Condition on discharge, stable and improved. 4. Diet: regular diet/Diabetic diet 5. Activities: resume normal activities 6. Follow-Up: 1. See Dr. Pineda in 1 week 2. See [facility] in one week 3. See podiatry in 1 week 4. Continue with physical therapy for wound care 7. Medications at the Time of Discharge: Home Medications Medication Instructions Recorded Confirmed Type Lo-Dose Aspirin Ec 1 tab ORAL QD tab 02/28/11 07/05/17 History Glucosamine HCl/Chondro Andrade A 1 cap PO .DAILY 08/07/11 07/05/17 History [Glucosamine Chondroitin Cap] Multivitamins W-Minerals/Lut 1 tab PO DAILY #0 tab 09/20/12 07/05/17 History [Centrum Silver Tablet] Cinnamon Bark/Chromium Picolin 500 mg PO DAILY 12/21/13 07/05/17 History [Cinnamon Plus Chromium Capsule] Bipap 1 unit INH BEDTIME #1 unit 04/03/16 07/05/17 History Amlodipine Besylate 1 tab PO QD #90 tab 12/01/16 07/05/17 Rx Atorvastatin Calcium 20 mg PO DAILY #90 tab 12/01/16 07/05/17 Rx Benazepril HCl 1 tab PO DAILY #90 tab 12/01/16 07/05/17 Rx Furosemide 1 tab PO BID #180 tab 12/01/16 07/05/17 Rx Insulin Glargine SoloStar Inj 45 unit SUBCUT QD #3 box 12/01/16 07/05/17 Rx [Lantus SoloStar Inj] Levothyroxine Sodium [Synthroid] 150 mcg PO DAILY #90 tab 12/01/16 07/05/17 Rx Metformin HCl 1 tab PO BID #180 tab 12/01/16 Rx Potassium Chloride 1 tab ORAL QD #90 tab 12/01/16 07/05/17 Rx Warfarin Sodium 1 tab PO ASDIR #120 tab 12/01/16 07/05/17 Rx Pen Needle, Diabetic [Unifine 1 ea QID #120 unit 12/25/16 07/05/17 Rx Pentips Plus] Insulin Aspart [Novolog Flexpen] 3 - 23 unit SUBCUT AC #3 unit 01/03/17 Rx Sildenafil Citrate [Viagra] 100 mg PO PRN PRN 02/06/17 07/05/17 History carvedilol 3.125 mg tablet 3.125 mg PO BID #180 tab 05/16/17 07/05/17 Rx Cephalexin [Keflex] 1,000 mg PO TID #60 cap 07/07/17 Rx Warfarin Sodium [Coumadin] 7.5 mg PO Andrade@2100 tab 07/07/17 Rx 8. Time, care, counseling and coordination of care for this discharge is greater than 30 minutes. Exam - Vitals Vital Signs: Vital Signs Temperature 98.1 F Temperature Source Temporal Artery Scan Pulse Rate [Pulse Oximeter] 58 Pulse Rate [Apical] 60 Pulse Rate 65 Respiratory Rate 20 Blood Pressure [Left Arm] 156/80 Blood Pressure 139/68 Pulse Ox 93 Oxygen Flow Rate 98 Oxygen Delivery Method Room Air Height 6 ft 2 in Weight 262 lb - General General Appearance: No Acute Distress, Cooperative - Head Head Exam: Normal Inspection, Normocephalic, Atraumatic - Eye Eye Exam: POSITIVE: No Scleral Icterus - ENT ENT Exam: POSITIVE: Mucous Membranes Moist - Respiratory Respiratory Exam: POSITIVE: Clear to Auscultation - Bilaterally, Breathing Non Labored - Cardiovascular Cardiovascular Exam: POSITIVE: No Murmur, No Clicks, No Gallops, No Rubs, Irregular Rhythm, No JVD - GI/Abdominal GI/Abdominal Exam: POSITIVE: Normal Bowel Sounds, Non Tender, Non Distended, Soft - Extremities Extremities Exam: POSITIVE: No Clubbing Present, No Cyanosis Present, +1 Edema Additional Extremities Exam Details: left foot bandaged, dressing is clean, dry, intact. - Neurological Neurological Exam: POSITIVE: Alert, Oriented x 3, No Facial Droop, Speech Intact / Clear, Moves All Extremities Equally - Psychiatric Psychiatric Exam: POSITIVE: Normal Affect, Normal Mood Data Perinent Studies: Laboratory Results 07/05/17 07/05/17 07/05/17 Range/Units 12:35 12:35 12:35 WBC 9.4 (4.8-10.8) 10^3/uL RBC 4.24 L (4.70-6.10) 10^6/uL Hgb 13.4 L (14.0-18.0) g/dL Hct 38.8 L (42.0-52.0) % MCV 92 H (80-90) FL MCH 31.7 H (27-31) PG MCHC 34.6 (33-37) g/dL RDW Coeff of Ashley 12.6 (11.5-14.5) % Plt Count 148 (140-350) 10*3/uL MPV 8.6 (7.4-12.2) FL Neut % (Auto) 65.4 (50-80) % Lymph % (Auto) 20.7 (10-50) % Roosevelt % (Auto) 9.6 (5-15) % Eos % (Auto) 3.8 (0-8) % Baso % (Auto) 0.5 (0-1) % Neut # (Auto) 6.12 10*3/UL Lymph # (Auto) 1.94 10*3/uL Roosevelt # (Auto) 0.9 H (0.3-0.8) 10*3/UL Eos # (Auto) 0.36 10*3/UL Baso # (Auto) 0.05 10*3/UL WBC Morphology Comment Normal morphology (NORM) Plt Morphology Comment Normal morphology (NORM) RBC Morph Comment Normal morphology (NORM) ESR 31 H (0-15) MM/HR PT (9.7-11.4) secs INR (0.00-5.90) N/A Sodium 141 (135-145) meq/L Potassium 3.9 (3.8-5.2) meq/L Chloride 106 (98-112) meq/L Carbon Dioxide 24 (23-33) meq/L Anion Gap 11 (5-20) BUN 20 (7-22) mg/dL Creatinine 0.8 (0.70-1.50) mg/dL BUN/Creatinine Ratio 25.00 H (6-20) Glucose 150 H (78-110) mg/dL Calculated Osmolality 297.0 H (267-292) mOsm/kg Calcium 9.4 (8.7-10.7) mg/dL Total Bilirubin 1.2 (0.3-1.2) mg/dL AST 24 (21-57) IU/L ALT 33 (21-72) IU/L Alkaline Phosphatase 103 (38-126) IU/L Total Protein 7.2 (6.1-8.0) g/dL Albumin 3.9 (3.5-4.8) g/dL Globulin 3.4 (2.50-4.10) g/dL Albumin/Globulin Ratio 1.10 L (1.3-2.0) mg/g 07/05/17 07/06/17 07/07/17 Range/Units 12:35 06:11 06:47 WBC 8.8 (4.8-10.8) 10^3/uL RBC 4.34 L (4.70-6.10) 10^6/uL Hgb 13.5 L (14.0-18.0) g/dL Hct 39.6 L (42.0-52.0) % MCV 91 H (80-90) FL MCH 31.1 H (27-31) PG MCHC 34.1 (33-37) g/dL RDW Coeff of Ashley 13.4 (11.5-14.5) % Plt Count 151 (140-350) 10*3/uL MPV 8.8 (7.4-12.2) FL Neut % (Auto) 62.2 (50-80) % Lymph % (Auto) 22.7 (10-50) % Roosevelt % (Auto) 8.9 (5-15) % Eos % (Auto) 5.7 (0-8) % Baso % (Auto) 0.5 (0-1) % Neut # (Auto) 5.45 10*3/UL Lymph # (Auto) 1.99 10*3/uL Roosevelt # (Auto) 0.78 (0.3-0.8) 10*3/UL Eos # (Auto) 0.50 10*3/UL Baso # (Auto) 0.04 10*3/UL WBC Morphology Comment Normal morphology (NORM) Plt Morphology Comment Normal morphology (NORM) RBC Morph Comment Normal morphology (NORM) ESR (0-15) MM/HR PT 30.2 H 15.1 H (9.7-11.4) secs INR 2.82 1.42 (0.00-5.90) N/A Sodium (135-145) meq/L Potassium (3.8-5.2) meq/L Chloride (98-112) meq/L Carbon Dioxide (23-33) meq/L Anion Gap (5-20) BUN (7-22) mg/dL Creatinine (0.70-1.50) mg/dL BUN/Creatinine Ratio (6-20) Glucose (78-110) mg/dL Calculated Osmolality (267-292) mOsm/kg Calcium (8.7-10.7) mg/dL Total Bilirubin (0.3-1.2) mg/dL AST (21-57) IU/L ALT (21-72) IU/L Alkaline Phosphatase (38-126) IU/L Total Protein (6.1-8.0) g/dL Albumin (3.5-4.8) g/dL Globulin (2.50-4.10) g/dL Albumin/Globulin Ratio (1.3-2.0) mg/g 07/07/17 07/07/17 Range/Units 06:47 06:47 WBC (4.8-10.8) 10^3/uL RBC (4.70-6.10) 10^6/uL Hgb (14.0-18.0) g/dL Hct (42.0-52.0) % MCV (80-90) FL MCH (27-31) PG MCHC (33-37) g/dL RDW Coeff of Ashley (11.5-14.5) % Plt Count (140-350) 10*3/uL MPV (7.4-12.2) FL Neut % (Auto) (50-80) % Lymph % (Auto) (10-50) % Roosevelt % (Auto) (5-15) % Eos % (Auto) (0-8) % Baso % (Auto) (0-1) % Neut # (Auto) 10*3/UL Lymph # (Auto) 10*3/uL Roosevelt # (Auto) (0.3-0.8) 10*3/UL Eos # (Auto) 10*3/UL Baso # (Auto) 10*3/UL WBC Morphology Comment (NORM) Plt Morphology Comment (NORM) RBC Morph Comment (NORM) ESR (0-15) MM/HR PT 11.9 H (9.7-11.4) secs INR 1.12 (0.00-5.90) N/A Sodium 141 (135-145) meq/L Potassium 3.5 L (3.8-5.2) meq/L Chloride 105 (98-112) meq/L Carbon Dioxide 25 (23-33) meq/L Anion Gap 11 (5-20) BUN 14 (7-22) mg/dL Creatinine 0.7 (0.70-1.50) mg/dL BUN/Creatinine Ratio 20.00 (6-20) Glucose 143 H (78-110) mg/dL Calculated Osmolality 294.0 H (267-292) mOsm/kg Calcium 9.3 (8.7-10.7) mg/dL Total Bilirubin (0.3-1.2) mg/dL AST (21-57) IU/L ALT (21-72) IU/L Alkaline Phosphatase (38-126) IU/L Total Protein (6.1-8.0) g/dL Albumin (3.5-4.8) g/dL Globulin (2.50-4.10) g/dL Albumin/Globulin Ratio (1.3-2.0) mg/g Microbiology 07/06/17 11:34 Foot - Left Gram Stain - Final 07/06/17 11:34 Foot - Left Anaerobic Culture - Pending 07/06/17 11:34 Foot - Left Aerobic Culture - Preliminary 07/05/17 12:44 Blood Blood Culture - Preliminary NO GROWTH AFTER 48 HOURS 07/05/17 12:35 Blood Blood Culture - Preliminary NO GROWTH AFTER 48 HOURS Preliminary culture on left foot is beta-hemolytic strep [address] [place] [address] PH: DD: [phone] FAX: [phone] ~DIAGNOSTIC IMAGING REPORT~ Patient: SARATH ANDINO : 1940 Sex: M Age: 76 Exam Name: MRI Lower Extremity WO Radha Exam Date: 07/05/17 Report # : [id number] CPT Code: 44962 EMR/MR #: [id number] Ordering: Noel Luo Admiting: NOEL LUO MD. Primary: Darvin Pineda MD Attending: NOEL LUO MD. Signed MRI LEFT FOOT SCAN, 07/05/2017 12:35 PM: Clinical History: Left fifth toe swelling. Previous Exam: None at this facility. Technique: Axial, coronal, and sagittal PDW and fat saturated PD. Motion correction sequences were also utilized. There is edema of the skin surrounding the little toe and on the plantar aspect of the little toe is a focus of hyperintensity in the fatty tissue. This focus of hyperintensity measures about 10 mm in diameter and is inhomogeneous. No metallic or other foreign body is identified. No fractures are noted. The remaining toes are unremarkable. There is no joint effusion or abnormality of the flexor or extensor tendons. Readin. There is soft tissue swelling involving the skin in the subcutaneous tissues of the little toe with a more marked focus of hyperintensity measuring 10 mm in diameter on the plantar aspect of the distal phalanx of the little toe. This hyperintensity is inhomogeneous. It may represent a phlegmon or a focus of edema. There is no evidence of a metallic or other foreign body present. 2. The remainder of the examination is normal. Dictated By: 07/05/172006 ADONIS MIRELES MD. Signed By: 07/05/172016 ADONIS MIRELES MD. [address] [facility] [place] [address] PH: DD: [phone] FAX: [phone] ~DIAGNOSTIC IMAGING REPORT~ Patient: SARATH ANDINO : 1940 Sex: M Age: 76 Exam Name: XR FOOT COMPLETE MIN 3VW Exam Date: 07/05/17 Report # : [id number] CPT Code: 14095 EMR/MR #: [id number] Ordering: Noel Luo Admiting: NOEL LUO MD. Primary: Darvin Pineda MD Attending: NOEL LUO MD. Signed LEFT FOOT, 07/05/2017 12:22 PM: Clinical History: Swelling of the left fifth toe. Previous Exam: None at this facility. 3 views are submitted. There is increased size in the soft tissues of the left little toe as well as increased density consistent with the clinical history of swelling. There is no radiopaque foreign body or soft tissue gas. No ulcerations are identified. There is no periosteal new bone formation. The remainder of the foot examination is normal. Readin. Soft tissue swelling of the little toe without any bony abnormality. There is no radiopaque foreign body or soft tissue gas. 2. If osteomyelitis is strongly suspected clinically, then followup films in 7- 10 days are recommended. Alternatively, an MRI scan without and with IV contrast of the foot (toes) can be performed. Dictated By: 07/05/17 1537 ADONIS MIRELES MD. Signed By: 07/05/17 1546 ADONIS MIRELES MD. Patient Problems - Patient Problem List (1) Diabetic infection of left foot Current Visit: Yes Status: Acute Comment: day # 2 antibiotics. Code(s): E11.69 - Type 2 diabetes mellitus with other specified complication; L08.9 - Local infection of the skin and subcutaneous tissue, unspecified Category: Medical (2) Abscess of fifth toe, left Current Visit: Yes Status: Acute Onset Date: ~06/30/17 Priority: High Code(s): L02.612 - Cutaneous abscess of left foot Category: Medical (3) Hypertension Current Visit: Yes Status: Chronic Comment: Continue beta sanford he is at 75 now with heart rate in the 60s we'll increase Norvasc from 5-10 since his blood pressure in the 150 range continue to monitor also for that she needs to be in the hospital at least 2 more day Code(s): I10 - Essential (primary) hypertension Qualifiers: Hypertension type: essential hypertension Qualified Code(s): I10 - Essential (primary) hypertension Category: Medical (4) Diabetes mellitus Current Visit: Yes Status: Chronic Code(s): E11.9 - Type 2 diabetes mellitus without complications Qualifiers: Diabetes mellitus type: type 2 Diabetes mellitus complication status: with neurologic complications Diabetes mellitus complication detail: with autonomic neuropathy Diabetes mellitus exterminator helper insulin use: with alf use Qualified Code(s): E11.43 - Type 2 diabetes mellitus with diabetic autonomic (poly)neuropathy; Z79.4 - halfway (current) use of insulin; Z79.4 - intermediate school teacher (current) use of insulin; Z79.4 - halfway (current) use of insulin; Z79.4 - intermediate school teacher (current) use of insulin Category: Medical (5) Atrial fibrillation Current Visit: Yes Status: Chronic Comment: resuming coumadin. I recommended recheck of INR on Sunday. Code(s): I48.91 - Unspecified atrial fibrillation Qualifiers: Atrial fibrillation type: chronic Qualified Code(s): I48.2 - Chronic atrial fibrillation Category: Medical
[2017-07-08] MEDS ORDERED: Warfarin 5 MG TAB PO SCH (21:00)
--- NOTE | 2017-07-09 11:26 | PTI REPORT ---
Thank you for the referral of Kermit Baer. He was seen on 07/07/17 for an inpatient evaluation status post left 5th toe debridement. SUBJECTIVE: The patient is a 76-year-old male. The patient reports he underwent surgery following an I&D under Dr. Castrejon. The patient's was present during the evaluation and states he has had problems with poor circulation and decreased feeling in his lower extremities. They both hope that they can learn to do the dressing changes on their own so that he may be discharged sooner. PAST MEDICAL HISTORY: Past medical history can be found in the patient's medical record. OBJECTIVE FINDINGS: The patient presented with a post surgical bandage on the left lower extremity. Upon dressing removal the patient has stitches on the lateral surface of his fifth toe with an opening on the plantar surface of the 5th. Please see pictures in nursing notes for further detail. There was a scant amount of serosanguineous drainage and mild maceration from the dressing. ASSESSMENT: Problem List: Open wound Risk of infection Physical Therapy Goals: To be met by discharge from inpatient: Patient will promote clean wound care. Patient and patient's family will be educated on proper robin skin care and wound dressings. Patient will be issued a cast shoe and instructed on donning and doffing of softgood. TREATMENT PLAN: Patient will be seen on a PRN basis for wound care. INITIAL TREATMENT: Treatment today consisted of the initial evaluation followed by cleansing the area with wound cleanser and dressing it with Hydrofera Blue and wrapping it with clean gauze and Coban. Supplies were provided by the physical therapy department. The patient and the patient's were also educated on dressing changes at home. They were also encouraged to obtain an order for outpatient physical therapy for wound dressings. Because the patient is on Medicare, we may order supplies through [employer] for which the family may be able to do the dressing changes on their own at home. The patient was also issued a cast shoe and educated on non weight-bearing per Dr. Castrejon's orders. The patient was given verbal education on non weight-bearing for the left lower extremity and the patient was able to perform return demonstration. The patient performed toileting activities with modified independence with use of a walker. LOGAN
== END 2017-07-07 15:52 | disposition home or self-care (01) | DRG 571 ==
LOC: MED/SURG 11:55 → OPS 07-06 10:03 → MED/SURG 07-06 12:05
PROVIDERS: ADMIT Internal Medicine; ATTEND Internal Medicine